=== PATIENT | female | born 1965 | race Native Hawaiian/Other Pacific Islander ===

== ENCOUNTER 2017-05-20 03:55 | Inpatient (IN) | payer MEDICAID ==
--- NOTE | 2017-05-20 04:31 | Emergency Department Report ---
HPI - General Time Seen by Provider: 05/20/17 04:14 - HPI HPI: Room 23 The patient is a 52-year-old female presenting with chief complaint of chest pain and shortness of breath. The patient speaks Amharic and is only able to provide a limited history. Patient acknowledges she developed shortness of breath and left-sided chest pain at 23:00 last night. Per EMS the patient complained of back pain prior to arrival. Patient is an occasional cough slightly productive of yellow sputum. Patient denies fever at home Location: Lungs, chest, see above Duration: [see above] Quality: Pain, shortness of breath Severity: Moderate Modifying factors: [see above] Context: [see above] Mode of transportation: EMS ED Past Medical Hx - Past Medical History Additional medical history: systemic scleroderma "my lungs are black and scarred ". very tiny and frail with bony deformities to both wrists and fingers - Surgical History Additional Surgical History: - Family History Family history: no significant - Social History Smoking Status: Never Smoker Substance Use Type: None - Medications Home Medications: Home Medications Medication Instructions Recorded Confirmed Last Taken Type Omeprazole [Prilosec] 40 mg PO QDAY 04/17/14 04/17/14 Unknown History ALBUTEROL Inhaler [Proair] 2 puff IH BID 05/20/17 05/20/17 Unknown History Budesoni/Formoterol 80-4.5(Nf) 2 puff IH BID 05/20/17 05/20/17 Unknown History [Symbicort 80-4.5 (Nf)] FLUoxetine [PROzac] 20 mg PO QDAY 05/20/17 05/20/17 Unknown History Sildenafil [Revatio] 20 mg PO TID 05/20/17 05/20/17 Unknown History Warfarin [Coumadin] 4 mg PO QDAY 05/20/17 05/20/17 Unknown History risperiDONE [RisperiDONE] 1 mg PO QDAY 05/20/17 05/20/17 Unknown History ED Review of Systems ROS: Stated complaint: ELIJAH Other details as noted in HPI Comment: Unobtainable due to pts medical conditions Respiratory: shortness of breath Cardiovascular: chest pain Physical Exam - Physical Exam Physical Exam: GENERAL: The patient is well-developed well-nourished []. [] HEENT: Normocephalic. Atraumatic. Extraocular motions are intact. Patient has moist mucous membranes. NECK: Supple. No meningitic signs are noted. There is no adenopathy noted. CHEST/LUNGS: Clear to auscultation. There is no respiratory distress noted. HEART/CARDIOVASCULAR: Regular. There is no tachycardia. There is no gallop rub or murmur. ABDOMEN: Abdomen is soft, nontender. Patient has normal bowel sounds. There is no abdominal distention. SKIN: There is no rash. There is no edema. There is no diaphoresis. NEURO: The patient is awake, alert, and oriented. The patient is cooperative. The patient has no focal neurologic deficits. The patient has normal speech and gait. MUSCULOSKELETAL: There is no tenderness or deformity. There is no limitation range of motion. There is no evidence of acute injury. ED Course - Reevaluation(s) Reevaluation #1: 05/20/17 04:39 Patient improved while on BiPAP. ED Medical Decision Making - Lab Data Result diagrams: 05/20/17 05:44 05/20/17 04:38 Laboratory Tests 05/20/17 05/20/17 05/20/17 04:38 04:38 04:53 PT 32.4 H INR 3.13 H APTT 32.6 D-Dimer 2081.20 H POC ABG pH 7.300 L POC ABG pCO2 68.0 H POC ABG pO2 285 H POC ABG HCO3 33.5 POC ABG Total CO2 36 POC ABG O2 Sat 100 POC ABG Base Excess 7 FiO2 100 Sodium 134 L Potassium 4.0 Chloride 93.5 L Carbon Dioxide 24 Anion Gap 21 BUN 14 Creatinine 0.4 L Estimated GFR > 60 BUN/Creatinine Ratio 35.00 Glucose 189 H Calcium 8.6 Total Bilirubin 0.20 AST 23 ALT 14 Alkaline Phosphatase 79 Total Creatine Kinase 35 CK-MB (CK-2) 1.5 CK-MB (CK-2) Rel Index 4.2 H Troponin T < 0.010 NT-Pro-B Natriuret Pep 209.8 Total Protein 7.1 Albumin 3.4 L Albumin/Globulin Ratio 0.9 Laboratory Tests 05/20/17 05/20/17 05/20/17 04:38 04:38 04:53 WBC RBC Hgb Hct MCV MCH MCHC RDW Plt Count Lymph % (Auto) [place] % (Auto) Eos % (Auto) Baso % (Auto) Lymph # [place] # Eos # Baso # Seg Neutrophils % Seg Neutrophils # PT 32.4 H INR 3.13 H APTT 32.6 D-Dimer 2081.20 H POC ABG pH 7.300 L POC ABG pCO2 68.0 H POC ABG pO2 285 H POC ABG HCO3 33.5 POC ABG Total CO2 36 POC ABG O2 Sat 100 POC ABG Base Excess 7 FiO2 100 Sodium 134 L Potassium 4.0 Chloride 93.5 L Carbon Dioxide 24 Anion Gap 21 BUN 14 Creatinine 0.4 L Estimated GFR > 60 BUN/Creatinine Ratio 35.00 Glucose 189 H Calcium 8.6 Total Bilirubin 0.20 AST 23 ALT 14 Alkaline Phosphatase 79 Total Creatine Kinase 35 CK-MB (CK-2) 1.5 CK-MB (CK-2) Rel Index 4.2 H Troponin T < 0.010 NT-Pro-B Natriuret Pep 209.8 Total Protein 7.1 Albumin 3.4 L Albumin/Globulin Ratio 0.9 05/20/17 05:44 WBC 12.2 H RBC 3.97 Hgb 10.5 Hct 33.3 MCV 84 MCH 26 L MCHC 31 RDW 17.7 H Plt Count 188 Lymph % (Auto) 4.9 L [place] % (Auto) 9.2 H Eos % (Auto) 0.2 Baso % (Auto) 0.3 Lymph # 0.6 L [place] # 1.1 H Eos # 0.0 Baso # 0.0 Seg Neutrophils % 85.4 H Seg Neutrophils # 10.4 H PT INR APTT D-Dimer POC ABG pH POC ABG pCO2 POC ABG pO2 POC ABG HCO3 POC ABG Total CO2 POC ABG O2 Sat POC ABG Base Excess FiO2 Sodium Potassium Chloride Carbon Dioxide Anion Gap BUN Creatinine Estimated GFR BUN/Creatinine Ratio Glucose Calcium Total Bilirubin AST ALT Alkaline Phosphatase Total Creatine Kinase CK-MB (CK-2) CK-MB (CK-2) Rel Index Troponin T NT-Pro-B Natriuret Pep Total Protein Albumin Albumin/Globulin Ratio - EKG Data -: EKG Interpreted by Me EKG shows normal: sinus rhythm Rate: tachycardia (138 bpm) - EKG Data When compared to previous EKG there are: previous EKG unavailable - Radiology Data Radiology results: pending (CT angio chest), image reviewed (chest x-ray) interpreted by me: Chest [id number] chronic appearing pulmonary scarring - Differential Diagnosis pneumonia, ACS, PE, pulmonary fibrosis Critical care attestation.: If time is entered above; I have spent that time in minutes in the direct care of this critically ill patient, excluding procedure time. ED Disposition Clinical Impression: Chest pain, Shortness of breath, Tachycardia Disposition: OP ADMIT IP TO THIS HOSP Is pt being admited?: Yes Does the pt Need Aspirin: No Condition: Serious Instructions: Chest Pain (ED) Referrals: PRIMARY CARE, [Primary Care Provider] - 3-5 Days Time of Disposition: 05:48 (hospitalist notified. CT chest pending)
[2017-05-20 05:06] LABS: INR 3.13 (0.87-1.13)
[2017-05-20 05:07] LABS: Partial Thromboplastin Time 32.6 Sec. (24.2-36.6)
[2017-05-20 05:13] LABS: Creatine Kinase MB 1.5 ng/mL (0.0-4.0)
[2017-05-20 05:15] LABS: Alanine Aminotransferase 14 units/L (7-56); Albumin 3.4 g/dL (3.9-5); Albumin/Globulin Ratio 0.9 %; Alkaline Phosphatase 79 units/L (35-129); Anion Gap 21 mmol/L; Blood Urea Nitrogen 14 mg/dL (7-17); Calcium 8.6 mg/dL (8.4-10.2); Carbon Dioxide 24 mmol/L (22-30); Chloride 93.5 mmol/L (98-107); Creatine Kinase 35 units/L (30-135); Glucose 189 mg/dL (65-100); Sodium 134 mmol/L (137-145); Total Protein 7.1 g/dL (6.3-8.2)
[2017-05-20 05:35] LABS: ISTAT Base Excess 7; ISTAT HCO3 33.5; ISTAT PO2 285 (80-105); ISTAT SO2 100; ISTAT TCO2 36
[2017-05-20] MEDS ORDERED: NACL 0.9% 1000 ML 1,000 ML IV ONE (05:57)
[2017-05-20 05:59] LABS: Basophils % (Auto) 0.3 % (0.0-1.8); Eosinophils % (Auto) 0.2 % (0.0-4.3); Hematocrit 33.3 % (30.3-42.9); Hemoglobin 10.5 gm/dl (10.1-14.3); Mean Corpuscular HGB Conc 31 % (30-34); Mean Corpuscular Hemoglobin 26 pg (28-32); Mean Corpuscular Volume 84 fl (79-97); Platelet Count 188 K/mm3 (140-440); Red Blood Count 3.97 M/mm3 (3.65-5.03); Red Cell Distribution Width 17.7 % (13.2-15.2); White Blood Count 12.2 K/mm3 (4.5-11.0)
[2017-05-20] MEDS ORDERED: NACL ONE (06:09)
--- NOTE | 2017-05-20 07:13 | Cat Scan Report ---
FINAL REPORT EXAM: CT ANGIO CHEST HISTORY: shortness of breath, chest pain TECHNIQUE: CT imaging obtained through the chest in pulmonary angiographic phase following intravenous administration of contrast. Transaxial, Coronal and sagittal reformats with maximal intensity projections are provided. PRIORS: None. FINDINGS: Normal caliber main pulmonary artery. Well opacified pulmonary arterial tree. No pulmonary embolism. No pericardial effusion. Thoracic aorta is normal in course and caliber. No periaortic fluid or stranding. Tracheal megaly with cystic bronchiectasis. Multiple lower lung predominant peribronchovascular ground-glass and solid attenuating nodules. Small bilateral pleural effusion. No pneumothorax. Imaged portion of the upper abdomen is unremarkable. The superficial soft tissues are unremarkable. No acute bony abnormality or worrisome osseous lesions identified. IMPRESSION: No pulmonary embolism. Chronic cystic bronchiectasis may be secondary to cystic fibrosis, connective tissue disease, Langerhans cell histiocytosis cystic lung disease, and multiple other relatively rare etiologies. Pulmonary consultation is recommended if not already obtained. Small bilateral pleural effusion. Numerous pulmonary nodules may reflect superimposed airspace disease or be due to underlying chronic process.
--- NOTE | 2017-05-20 07:16 | XRay Report ---
Single view chest: History: Shortness of breath. Findings: Cardiomegaly. Trachea is midline. Evidence of COPD with diffuse fibrosis and scarring. No definite consolidation with suspicion of infiltrates left lower lobe., no evidence of pleural effusion. Impression: Diffuse chronic fibrotic lung changes bilaterally with suspicion of infiltrates left lower lobe..
--- NOTE | 2017-05-20 09:50 | History and Physical Report ---
<ZAK MANCUSO - Last Filed: 05/20/17 14:03> History of Present Illness Date of examination: 05/20/17 Date of admission: 05/20/2017 Chief complaint: Shortness of breath History of present illness: Patient is a 52 years old female with past medical history rheumatoid arthritis, and pulmonary fibrosis presents with chief complaint of shortness of breath. Patient developed difficulty of breathing this morning around 5:00 AM she has had progressive worsening of shortness of breath and called 911 and the brought her to the Emergency department. The patient speaks [place] Citizen and I used ED language line. Patient denies chest pain, cough, fever, chills, or night sweats. No hx of recurrent pneumonia. She has no sick contact, TB exposure ( that she knows of ie incarcerated, homeless). She also has no pets, has not been around any farm animals, and has not traveled recently or been around those who have. Past History Past Medical History: COPD, other (depression and Scleroderma.) Past Surgical History: No surgical history Social history: denies: smoking, alcohol abuse Family history: CAD, hypertension Medications and Allergies Allergies Allergy/AdvReac Type Severity Reaction Status Date / Time No Known Allergies Allergy Verified 04/17/14 14:26 Home Medications Medication Instructions Recorded Confirmed Last Taken Type Omeprazole [Prilosec] 40 mg PO QDAY 04/17/14 05/20/17 Unknown History ALBUTEROL Inhaler [Proair] 2 puff IH BID 05/20/17 05/20/17 Unknown History Budesoni/Formoterol 80-4.5(Nf) 2 puff IH BID 05/20/17 05/20/17 Unknown History [Symbicort 80-4.5 (Nf)] FLUoxetine [PROzac] 20 mg PO QDAY 05/20/17 05/20/17 Unknown History Sildenafil [Revatio] 20 mg PO TID 05/20/17 05/20/17 Unknown History Warfarin [Coumadin] 4 mg PO QDAY 05/20/17 05/20/17 Unknown History risperiDONE [RisperiDONE] 1 mg PO QDAY 05/20/17 05/20/17 Unknown History Active Meds: Active Medications Acetaminophen (Tylenol) 650 mg PO Q4H PRN PRN Reason: Pain MILD(1-3)/Fever >100.5/RAMIREZ Albuterol (Proventil) 2.5 mg IH Q3HRT PRN PRN Reason: Shortness Of Breath Albuterol/Ipratropium (Duoneb *Not For Prn Use*) 1 ampul IH Q6HRT [facility] Bisacodyl (Dulcolax) 10 mg AR QDAY PRN PRN Reason: Constipation unrelieved by MOM Fluoxetine HCl (Prozac) 20 mg PO QDAY [facility] Sodium Chloride (Nacl 0.9% 1000 Ml) 1,000 mls @ 75 mls/hr IV DIRECT [facility] Magnesium Hydroxide (Milk Of Magnesia) 30 ml PO Q4H PRN PRN Reason: Constipation Miscellaneous Medication (Budesoni/Formoterol 80-4.5(Nf)) 2 puff IH BID [facility] Miscellaneous Medication (Omeprazole [Prilosec]) 40 mg PO QDAY [facility] Ondansetron HCl (Zofran) 4 mg IM Q4H PRN PRN Reason: Nausea And Vomiting Risperidone (Risperdal) 1 mg PO QDAY [facility] Sildenafil Citrate (Revatio) 20 mg PO TID [facility] Warfarin Sodium (Coumadin Pharmacy To Dose) 1 each PO PKCONSULT [facility] PRN Reason: Protocol Review of Systems Constitutional: no weight loss, no weight gain, no chills, no sweats Ears, nose, mouth and throat: no ear discharge, no tinnitis, no decreased hearing, no nose pain, no nasal congestion Breasts: no change in shape, no swelling Cardiovascular: shortness of breath, dyspnea on exertion, no chest pain, no orthopnea, no palpitations, no rapid/irregular heart beat, no syncope Respiratory: shortness of breath, dyspnea on exertion, congestion, wheezing, no cough, no cough with sputum Gastrointestinal: no vomiting, no diarrhea, no constipation, no change in bowel habits Genitourinary Female: no pelvic pain, no flank pain, no menorrhagia, no dysuria , no urinary frequency Rectal: no incontinence, no bleeding Musculoskeletal: no neck stiffness, no neck pain, no shooting arm pain, no arm numbness/tingling Integumentary: no pruritis, no redness, no sores Neurological: no head injury, no transient paralysis, no weakness, no parathesias Psychiatric: no memory loss, no change in sleep habits, no sleep disturbances, no insomnia, no hypersomnia Endocrine: no polyphagia, no excessive thirst, no polydipsia, no polyuria, no nocturia, no excessive sweating Hematologic/Lymphatic: no easy bruising, no easy bleeding Allergic/Immunologic: no urticaria, no allergic rhinitis Exam - Constitutional Vitals: Temp Pulse Resp BP Pulse Ox 98.2 F 113 H 31 H 99/59 69 L 05/20/17 07:30 05/20/17 08:30 05/20/17 08:30 05/20/17 08:30 05/20/17 08:30 General appearance: Present: no acute distress - EENT Eyes: Present: PERRL ENT: hearing intact - Neck Neck: Present: supple - Respiratory Respiratory effort: normal Respiratory: bilateral: CTA - Cardiovascular Rhythm: regular Heart Sounds: Present: S1 & S2 - Extremities Extremities: no ischemia Peripheral Pulses: within normal limits (is able) - Abdominal General gastrointestinal: Present: soft, non-tender Female genitourinary: Present: deferred - Rectal Rectal Exam: deferred - Integumentary Integumentary: Present: clear, warm, dry - Musculoskeletal Musculoskeletal: strength equal bilaterally - Psychiatric Psychiatric: appropriate mood/affect - Neurologic Neurologic: CNII-XII intact - Allied Health Allied health notes reviewed: nursing Results - Labs CBC & Chem 7: 05/20/17 05:44 05/20/17 04:38 Labs: Laboratory Last Values WBC 12.2 K/mm3 (4.5-11.0) H 05/20/17 05:44 RBC 3.97 M/mm3 (3.65-5.03) 05/20/17 05:44 Hgb 10.5 gm/dl (10.1-14.3) 05/20/17 05:44 Hct 33.3 % (30.3-42.9) 05/20/17 05:44 MCV 84 fl (79-97) 05/20/17 05:44 MCH 26 pg (28-32) L 05/20/17 05:44 MCHC 31 % (30-34) 05/20/17 05:44 RDW 17.7 % (13.2-15.2) H 05/20/17 05:44 Plt Count 188 K/mm3 (140-440) 05/20/17 05:44 Lymph % (Auto) 4.9 % (13.4-35.0) L 05/20/17 05:44 [place] % (Auto) 9.2 % (0.0-7.3) H 05/20/17 05:44 Eos % (Auto) 0.2 % (0.0-4.3) 05/20/17 05:44 Baso % (Auto) 0.3 % (0.0-1.8) 05/20/17 05:44 Lymph # 0.6 K/mm3 (1.2-5.4) L 05/20/17 05:44 [place] # 1.1 K/mm3 (0.0-0.8) H 05/20/17 05:44 Eos # 0.0 K/mm3 (0.0-0.4) 05/20/17 05:44 Baso # 0.0 K/mm3 (0.0-0.1) 05/20/17 05:44 Seg Neutrophils % 85.4 % (40.0-70.0) H 05/20/17 05:44 Seg Neutrophils # 10.4 K/mm3 (1.8-7.7) H 05/20/17 05:44 PT 32.4 Sec. (12.2-14.9) H 05/20/17 04:38 INR 3.13 (0.87-1.13) H 05/20/17 04:38 APTT 32.6 Sec. (24.2-36.6) 05/20/17 04:38 D-Dimer 2081.20 ng/mlDDU (0-234) H 05/20/17 04:38 POC ABG pH 7.300 (7.35-7.45) L 05/20/17 04:53 POC ABG pCO2 68.0 (35-45) H 05/20/17 04:53 POC ABG pO2 285 (80-105) H 05/20/17 04:53 POC ABG HCO3 33.5 05/20/17 04:53 POC ABG Total CO2 36 05/20/17 04:53 POC ABG O2 Sat 100 05/20/17 04:53 POC ABG Base Excess 7 05/20/17 04:53 FiO2 100 % 05/20/17 04:53 Sodium 134 mmol/L (137-145) L 05/20/17 04:38 Potassium 4.0 mmol/L (3.6-5.0) 05/20/17 04:38 Chloride 93.5 mmol/L (98-107) L 05/20/17 04:38 Carbon Dioxide 24 mmol/L (22-30) 05/20/17 04:38 Anion Gap 21 mmol/L 05/20/17 04:38 BUN 14 mg/dL (7-17) 05/20/17 04:38 Creatinine 0.4 mg/dL (0.7-1.2) L 05/20/17 04:38 Estimated GFR > 60 ml/min 05/20/17 04:38 BUN/Creatinine Ratio 35.00 % 05/20/17 04:38 Glucose 189 mg/dL (65-100) H 05/20/17 04:38 Calcium 8.6 mg/dL (8.4-10.2) 05/20/17 04:38 Total Bilirubin 0.20 mg/dL (0.1-1.2) 05/20/17 04:38 AST 23 units/L (5-40) 05/20/17 04:38 ALT 14 units/L (7-56) 05/20/17 04:38 Alkaline Phosphatase 79 units/L (35-129) 05/20/17 04:38 Total Creatine Kinase 35 units/L (30-135) 05/20/17 04:38 CK-MB (CK-2) 1.5 ng/mL (0.0-4.0) 05/20/17 04:38 CK-MB (CK-2) Rel Index 4.2 (0-4) H 05/20/17 04:38 Troponin T < 0.010 ng/mL (0.00-0.029) 05/20/17 04:38 NT-Pro-B Natriuret Pep 209.8 pg/mL (0-900) 05/20/17 04:38 Total Protein 7.1 g/dL (6.3-8.2) 05/20/17 04:38 Albumin 3.4 g/dL (3.9-5) L 05/20/17 04:38 Albumin/Globulin Ratio 0.9 % 05/20/17 04:38 - Imaging and Cardiology Chest x-ray: image reviewed (diffuse chronic fibrotic lung changes bilaterally with suspicion of infiltrates left lower lobe.) CT scan - abdomen: image reviewed (chronic cystic bronchiectasis secondary to cystic fibrosis, connective tissue diseases,Langerhans cells histiocytosis cystic lung disease.) US - abdomen: image reviewed Assessment and Plan Assessment and plan: Patient is a 52 years old female with past medical history rheumatoid arthritis, and pulmonary fibrosis presents with chief complaint of shortness of breath. Patient developed difficulty of breathing this morning around 5:00 AM she has had progressive worsening of shortness of breath and called 911 and the brought her to the Emergency department. PLAN Acute on chronic respiratory failure secondary to pulmonary fibrosis. Improved with BiPAP 60%; Patient currently on 15LNC on face mask, no acute respiratory distress is noted.. Aggressive Nebulizers/Inhalers ABG when necessary Oxygen supplement Supportive care Pulmonary consult Pulmonary Fibrosis Chest x-ray showed diffuse chronic fibrotic lung changes bilaterally with suspicion of infiltrates left lower lobe. CTA reviewed and demonstrated chronic cystic bronchiectasis secondary to cystic fibrosis, connective tissue diseases,Langerhans cells histiocytosis cystic lung disease. Elevated D-marlena CTA no evidence of PE Pulmonary consult Suspected Pneumonia Chest x-ray showed diffuse chronic fibrotic lung changes bilaterally with suspicion of infiltrates left lower lobe Blood and urine cultures were collected Follow blood cultures Initiated empiric treatment IV Levaquin Nebulizers/Inhalers Depression Stable at this time Resume home antidepressant medications DVT/Prophylaxis On Coumadin Advance Directives: Yes VTE prophylaxis?: Chemical Contraindication Mechanical VTE Prophylaxis: Treatment Not Indicated Plan of care discussed with patient/family: Yes <JUDD SANTO - Last Filed: 05/20/17 18:57> History of Present Illness Date of admission: 05/20/17 09:37 Medications and Allergies Active Meds: Active Medications Acetaminophen (Tylenol) 650 mg PO Q4H PRN PRN Reason: Pain MILD(1-3)/Fever >100.5/RAMIREZ Albuterol (Proventil) 2.5 mg IH Q3HRT PRN PRN Reason: Shortness Of Breath Albuterol/Ipratropium (Duoneb *Not For Prn Use*) 1 ampul IH Q6HRT [facility] Last Admin: 05/20/17 14:01 Dose: 1 ampul Arformoterol Tartrate (Brovana Nebu) 15 mcg IH Q12HRT [facility] Bisacodyl (Dulcolax) 10 mg AR QDAY PRN PRN Reason: Constipation unrelieved by MOM Budesonide (Pulmicort) 0.5 mg IH Q12HRT [facility] Fluoxetine HCl (Prozac) 20 mg PO QDAY [facility] Last Admin: 05/20/17 14:28 Dose: 20 mg Sodium Chloride (Nacl 0.9% 1000 Ml) 1,000 mls @ 75 mls/hr IV DIRECT [facility] Last Admin: 05/20/17 14:27 Dose: 75 mls/hr Levofloxacin/Dextrose (Levaquin 750mg/150ml) 750 mg in 150 mls @ 100 mls/hr IV Q24H [facility] PRN Reason: Protocol Last Admin: 05/20/17 14:27 Dose: 100 mls/hr Magnesium Hydroxide (Milk Of Magnesia) 30 ml PO Q4H PRN PRN Reason: Constipation Methylprednisolone Sodium Succinate (Solu-Medrol) 60 mg IV Q6H [facility] Last Admin: 05/20/17 14:28 Dose: 60 mg Ondansetron HCl (Zofran) 4 mg IM Q4H PRN PRN Reason: Nausea And Vomiting Pantoprazole Sodium (Protonix) 40 mg PO DAILY [facility] Last Admin: 05/20/17 14:27 Dose: 40 mg Risperidone (Risperdal) 1 mg PO QDAY [facility] Last Admin: 05/20/17 14:28 Dose: 1 mg Sildenafil Citrate (Revatio) 20 mg PO TID [facility] Last Admin: 05/20/17 17:49 Dose: 20 mg Warfarin Sodium (Coumadin Pharmacy To Dose) 1 each PO PKCONSULT [facility] PRN Reason: Protocol Warfarin Sodium (Coumadin) 4 mg PO DAILY@1700 [facility] Exam - Constitutional Vitals: Temp Pulse Resp BP Pulse Ox 98.2 F 114 H 25 H 103/66 96 05/20/17 07:30 05/20/17 14:08 05/20/17 15:41 05/20/17 11:00 05/20/17 14:03 Results - Labs CBC & Chem 7: 05/20/17 05:44 05/20/17 04:38 Labs: Laboratory Last Values WBC 12.2 K/mm3 (4.5-11.0) H 05/20/17 05:44 RBC 3.97 M/mm3 (3.65-5.03) 05/20/17 05:44 Hgb 10.5 gm/dl (10.1-14.3) 05/20/17 05:44 Hct 33.3 % (30.3-42.9) 05/20/17 05:44 MCV 84 fl (79-97) 05/20/17 05:44 MCH 26 pg (28-32) L 05/20/17 05:44 MCHC 31 % (30-34) 05/20/17 05:44 RDW 17.7 % (13.2-15.2) H 05/20/17 05:44 Plt Count 188 K/mm3 (140-440) 05/20/17 05:44 Lymph % (Auto) 4.9 % (13.4-35.0) L 05/20/17 05:44 [place] % (Auto) 9.2 % (0.0-7.3) H 05/20/17 05:44 Eos % (Auto) 0.2 % (0.0-4.3) 05/20/17 05:44 Baso % (Auto) 0.3 % (0.0-1.8) 05/20/17 05:44 Lymph # 0.6 K/mm3 (1.2-5.4) L 05/20/17 05:44 [place] # 1.1 K/mm3 (0.0-0.8) H 05/20/17 05:44 Eos # 0.0 K/mm3 (0.0-0.4) 05/20/17 05:44 Baso # 0.0 K/mm3 (0.0-0.1) 05/20/17 05:44 Seg Neutrophils % 85.4 % (40.0-70.0) H 05/20/17 05:44 Seg Neutrophils # 10.4 K/mm3 (1.8-7.7) H 05/20/17 05:44 ESR 72 mm/Hr (0-20) 05/20/17 13:58 PT 32.4 Sec. (12.2-14.9) H 05/20/17 04:38 INR 3.13 (0.87-1.13) H 05/20/17 04:38 APTT 32.6 Sec. (24.2-36.6) 05/20/17 04:38 D-Dimer 2081.20 ng/mlDDU (0-234) H 05/20/17 04:38 POC ABG pH 7.300 (7.35-7.45) L 05/20/17 04:53 POC ABG pCO2 68.0 (35-45) H 05/20/17 04:53 POC ABG pO2 285 (80-105) H 05/20/17 04:53 POC ABG HCO3 33.5 05/20/17 04:53 POC ABG Total CO2 36 05/20/17 04:53 POC ABG O2 Sat 100 05/20/17 04:53 POC ABG Base Excess 7 05/20/17 04:53 FiO2 100 % 05/20/17 04:53 Sodium 134 mmol/L (137-145) L 05/20/17 04:38 Potassium 4.0 mmol/L (3.6-5.0) 05/20/17 04:38 Chloride 93.5 mmol/L (98-107) L 05/20/17 04:38 Carbon Dioxide 24 mmol/L (22-30) 05/20/17 04:38 Anion Gap 21 mmol/L 05/20/17 04:38 BUN 14 mg/dL (7-17) 05/20/17 04:38 Creatinine 0.4 mg/dL (0.7-1.2) L 05/20/17 04:38 Estimated GFR > 60 ml/min 05/20/17 04:38 BUN/Creatinine Ratio 35.00 % 05/20/17 04:38 Glucose 189 mg/dL (65-100) H 05/20/17 04:38 Calcium 8.6 mg/dL (8.4-10.2) 05/20/17 04:38 Total Bilirubin 0.20 mg/dL (0.1-1.2) 05/20/17 04:38 AST 23 units/L (5-40) 05/20/17 04:38 ALT 14 units/L (7-56) 05/20/17 04:38 Alkaline Phosphatase 79 units/L (35-129) 05/20/17 04:38 Total Creatine Kinase 35 units/L (30-135) 05/20/17 04:38 CK-MB (CK-2) 1.5 ng/mL (0.0-4.0) 05/20/17 04:38 CK-MB (CK-2) Rel Index 4.2 (0-4) H 05/20/17 04:38 Troponin T < 0.010 ng/mL (0.00-0.029) 05/20/17 04:38 C-Reactive Protein 13.20 mg/dL (0.00-1.30) H 05/20/17 13:58 NT-Pro-B Natriuret Pep 209.8 pg/mL (0-900) 05/20/17 04:38 Total Protein 7.1 g/dL (6.3-8.2) 05/20/17 04:38 Albumin 3.4 g/dL (3.9-5) L 05/20/17 04:38 Albumin/Globulin Ratio 0.9 % 05/20/17 04:38
[2017-05-20] MEDS ORDERED: LOVENOX SUB-Q SCH (10:00)
[2017-05-20] MEDS ORDERED: NON-FORMULARY (Omeprazole [Prilosec] 40 MG) PO SCH (10:00)
[2017-05-20] MEDS ORDERED: MILK OF MAGNESIA PO PRN (10:00)
[2017-05-20] MEDS ORDERED: ZOFRAN IM PRN (10:00)
[2017-05-20] MEDS ORDERED: TYLENOL PO PRN (10:00)
[2017-05-20] MEDS ORDERED: DULCOLAX PR PRN (10:00)
[2017-05-20] MEDS ORDERED: PROVENTIL IH PRN (10:00)
[2017-05-20] MEDS ORDERED: NON-FORMULARY (Budesoni/Formoterol 80-4.5(Nf) 2 PUFF) IH SCH (10:00)
--- NOTE | 2017-05-20 13:57 | Consultation ---
History of Present Illness Consult date: 05/20/17 Requesting physician: JUDD SANTO Reason for consult: dyspnea, abnormal CXR/CT History of present illness: 52 y/o female with known systemic sclerosis, rheumatoid arthritis, and pulmonary fibrosis, admitted with acute respiratory failure. Patient speaks no Pakistani. Had to call several translators but ultimately received the number to the clinic she goes to at [place]. They are currently faxing all of her paperwork over including an updated list of medications. Currently patient on Venti-mask and stable. Did require bipap briefly while in ED. Past History Past Medical History: COPD, other (depression and Scleroderma. Pulm HTN, RA) Past Surgical History: No surgical history Social history: denies: smoking, alcohol abuse Family history: CAD, hypertension Medications and Allergies Allergies Allergy/AdvReac Type Severity Reaction Status Date / Time No Known Allergies Allergy Verified 04/17/14 14:26 Home Medications Medication Instructions Recorded Confirmed Last Taken Type Omeprazole [Prilosec] 40 mg PO QDAY 04/17/14 05/20/17 Unknown History ALBUTEROL Inhaler [Proair] 2 puff IH BID 05/20/17 05/20/17 Unknown History Budesoni/Formoterol 80-4.5(Nf) 2 puff IH BID 05/20/17 05/20/17 Unknown History [Symbicort 80-4.5 (Nf)] FLUoxetine [PROzac] 20 mg PO QDAY 05/20/17 05/20/17 Unknown History Sildenafil [Revatio] 20 mg PO TID 05/20/17 05/20/17 Unknown History Warfarin [Coumadin] 4 mg PO QDAY 05/20/17 05/20/17 Unknown History risperiDONE [RisperiDONE] 1 mg PO QDAY 05/20/17 05/20/17 Unknown History Active Meds: Active Medications Acetaminophen (Tylenol) 650 mg PO Q4H PRN PRN Reason: Pain MILD(1-3)/Fever >100.5/RAMIREZ Albuterol (Proventil) 2.5 mg IH Q3HRT PRN PRN Reason: Shortness Of Breath Albuterol/Ipratropium (Duoneb *Not For Prn Use*) 1 ampul IH Q6HRT [facility] Arformoterol Tartrate (Brovana Nebu) 15 mcg IH Q12HRT [facility] Bisacodyl (Dulcolax) 10 mg [place] QDAY PRN PRN Reason: Constipation unrelieved by MOM Budesonide (Pulmicort) 0.5 mg IH Q12HRT [facility] Fluoxetine HCl (Prozac) 20 mg PO QDAY [facility] Sodium Chloride (Nacl 0.9% 1000 Ml) 1,000 mls @ 75 mls/hr IV DIRECT [facility] Levofloxacin/Dextrose (Levaquin 750mg/150ml) 750 mg in 150 mls @ 100 mls/hr IV Q24H [facility] PRN Reason: Protocol Magnesium Hydroxide (Milk Of Magnesia) 30 ml PO Q4H PRN PRN Reason: Constipation Ondansetron HCl (Zofran) 4 mg IM Q4H PRN PRN Reason: Nausea And Vomiting Pantoprazole Sodium (Protonix) 40 mg PO DAILY [facility] Risperidone (Risperdal) 1 mg PO QDAY [facility] Sildenafil Citrate (Revatio) 20 mg PO TID [facility] Warfarin Sodium (Coumadin Pharmacy To Dose) 1 each PO PKCONSULT [facility] PRN Reason: Protocol Warfarin Sodium (Coumadin) 4 mg PO DAILY@1700 [facility] Review of Systems All systems: negative Physical Examination Vital signs: Vital Signs Pulse Resp BP 134 H 33 H 146/73 05/20/17 04:16 05/20/17 04:16 05/20/17 04:16 General appearance: no acute distress, alert Eyes: non-icteric Neck: supple Effort: mildly labored Ascultation: Bilateral: rales Percussion: Bilateral: not dull Cardiovascular: regular rate and rhythm Gastrointestinal: normoactive bowel sounds Extremities: other (changes on upper ext consistent with scleroderma) Results - Laboratory Findings CBC and BMP: 05/20/17 05:44 05/20/17 04:38 ABG POC ABG pH 7.300 (7.35-7.45) L 05/20/17 04:53 POC ABG pCO2 68.0 (35-45) H 05/20/17 04:53 POC ABG pO2 285 (80-105) H 05/20/17 04:53 POC ABG HCO3 33.5 05/20/17 04:53 POC ABG Total CO2 36 05/20/17 04:53 POC ABG O2 Sat 100 05/20/17 04:53 PT/INR, D-dimer PT 32.4 Sec. (12.2-14.9) H 05/20/17 04:38 INR 3.13 (0.87-1.13) H 05/20/17 04:38 D-Dimer 2081.20 ng/mlDDU (0-234) H 05/20/17 04:38 - Diagnostic Findings Chest x-ray: image reviewed CT scan - chest: image reviewed Assessment and Plan 62 y/o female with possible flare of connective tissue disease, resulting in acute respiratory failure from underlying lung disease related to CTD. Check stat Sed Rate Check stat CRP Solumedrol 60q6 review outside records If no improvement with steroids, may need transfer to [place] for IV immunomodulator therapy by team who has treated her in the past.
[2017-05-20] MEDS: DUONEB *Not for PRN Use IH SCH ×2 (14:01→20:08)
[2017-05-20] MEDS: PROTONIX PO SCH (14:27)
[2017-05-20] MEDS: NACL 0.9% 1000 ML 1,000 ML IV SCH (14:27)
[2017-05-20] MEDS: LEVAQUIN 750MG/150ML 750 MG/150 ML BAG IV SCH (14:27)
[2017-05-20] MEDS: RisperDAL PO SCH (14:28)
[2017-05-20] MEDS: PROzac PO SCH (14:28)
[2017-05-20] MEDS ORDERED: COUMADIN PO SCH (17:00)
[2017-05-20] MEDS: REVATIO PO SCH ×2 (17:49→22:46)
[2017-05-20] MEDS: PULMICORT IH SCH (20:08)
[2017-05-20] MEDS: BROVANA NEBU IH SCH (21:15)
[2017-05-21] MEDS: DUONEB *Not for PRN Use IH SCH ×4 (02:11→20:02)
[2017-05-21] MEDS: NACL 0.9% 1000 ML 1,000 ML IV SCH (04:12)
[2017-05-21 05:30] LABS: Hemoglobin 9.8 gm/dl (10.1-14.3); Mean Corpuscular HGB Conc 33 % (30-34); Mean Corpuscular Hemoglobin 27 pg (28-32); Mean Corpuscular Volume 82 fl (79-97); Platelet Count 174 K/mm3 (140-440); Red Blood Count 3.67 M/mm3 (3.65-5.03); Red Cell Distribution Width 17.5 % (13.2-15.2); White Blood Count 8.9 K/mm3 (4.5-11.0)
[2017-05-21 05:42] LABS: INR 2.46 (0.87-1.13)
[2017-05-21 05:49] LABS: Anion Gap 17 mmol/L; BUN/Creatinine Ratio 46.66; Blood Urea Nitrogen 14 mg/dL (7-17); Calcium 8.3 mg/dL (8.4-10.2); Carbon Dioxide 25 mmol/L (22-30); Chloride 96.9 mmol/L (98-107); Glucose 175 mg/dL (65-100); Potassium 3.1 mmol/L (3.6-5.0); Sodium 136 mmol/L (137-145)
[2017-05-21 06:33] LABS: Basophils % (Manual) 0 % (0.0-1.8); Blastocytes % (Manual) 0 %; Eosinophils % (Manual) 0 % (0.0-4.3); Giant Platelets Rare
[2017-05-21 06:34] LABS: Anisocytosis RARE; Hypochromasia Rare; Stomatocytes Few
[2017-05-21 06:35] LABS: Diff Status Complete; Ovalocytes Rare
[2017-05-21] MEDS: BROVANA NEBU IH SCH ×2 (07:20→20:02)
[2017-05-21] MEDS: PULMICORT IH SCH ×2 (07:20→20:02)
[2017-05-21] MEDS: K-DUR PO SCH ×2 (10:12→15:26)
[2017-05-21] MEDS: PROzac PO SCH (10:12)
[2017-05-21] MEDS: PROTONIX PO SCH (10:12)
[2017-05-21] MEDS: RisperDAL PO SCH (10:12)
[2017-05-21] MEDS: REVATIO PO SCH ×2 (10:15→15:30)
--- NOTE | 2017-05-21 12:08 | Progress Note ---
Assessment and Plan Assessment and plan: --Acute on chronic hypoxic respiratory failure Oxygen titrate to O2 sats more than 90%, currently on BiPAP Nebulizers and high dose IV steroids, IV antibiotics, pulmonary following Follow ABG, if no improvement transfer to ICU for close observation . intubate as needed --Interstitial lung disease/pulmonary fibrosis IV steroids, supportive care --Systemic sclerosis; For the last 10 years, received Cytoxan ,Rituxan in the past Follows with operations administrative assistant and instrumentation technician Continue steroids and supportive care --History of rheumatoid arthritis Continue current management, --Hypokalemia; replace per protocol and monitor levels --Chronic anticoagulation; patient had supratherapeutic INR on admission Today therapeutic levels, 2.4, resume Coumadin closely monitor --History of gastroesophageal reflux disease Continue Protonix --History of depression; resume home antidepression medications --DVT prophylaxis; patient is already on Coumadin Closely monitor the patient and adjust the management as needed If patient does not improve with the above treatment, may consider transfer to [facility] For further evaluation and management I discussed the case with instrumentation technician Dr. Perkins Transfer to ICU for close observation. Discussed the plan of care with the patient, her nurse as well as the ICU nurse critical care time 32 min History Interval history: Patient seen and examined in her room this morning medical records reviewed On BiPAP, mild tachypnea saturating well is at the bedside, complaints of shortness of breath denies chest pain Alert awake oriented 3 in mild distress Vital signs reviewed Hospitalist Physical - Constitutional Vitals: Temp Pulse Resp BP Pulse Ox 97.5 F L 107 H 28 H 135/74 94 05/21/17 05:19 05/21/17 07:30 05/21/17 07:30 05/21/17 05:19 05/21/17 07:20 General appearance: Present: mild distress, well-nourished, other (on BiPAP) - EENT Eyes: Present: PERRL, EOM intact - Neck Neck: Present: supple, normal ROM - Respiratory Respiratory effort: normal Respiratory: bilateral: diminished, rhonchi (occasional), negative: rales, wheezing - Cardiovascular Rhythm: regular Heart Sounds: Present: S1 & S2 - Extremities Extremities: no ischemia, No edema - Abdominal General gastrointestinal: soft, non-tender, non-distended, normal bowel sounds - Integumentary Integumentary: Present: clear, warm - Psychiatric Psychiatric: appropriate mood/affect, cooperative - Neurologic Neurologic: CNII-XII intact, moves all extremities Results - Labs CBC & Chem 7: 05/21/17 05:01 05/21/17 05:01 Labs: Laboratory Last Values WBC 8.9 K/mm3 (4.5-11.0) 05/21/17 05:01 RBC 3.67 M/mm3 (3.65-5.03) 05/21/17 05:01 Hgb 9.8 gm/dl (10.1-14.3) L 05/21/17 05:01 Hct 30.0 % (30.3-42.9) L 05/21/17 05:01 MCV 82 fl (79-97) 05/21/17 05:01 MCH 27 pg (28-32) L 05/21/17 05:01 MCHC 33 % (30-34) 05/21/17 05:01 RDW 17.5 % (13.2-15.2) H 05/21/17 05:01 Plt Count 174 K/mm3 (140-440) 05/21/17 05:01 Lymph % (Auto) 4.9 % (13.4-35.0) L 05/20/17 05:44 [place] % (Auto) 9.2 % (0.0-7.3) H 05/20/17 05:44 Eos % (Auto) 0.2 % (0.0-4.3) 05/20/17 05:44 Baso % (Auto) 0.3 % (0.0-1.8) 05/20/17 05:44 Lymph # 0.6 K/mm3 (1.2-5.4) L 05/20/17 05:44 [place] # 1.1 K/mm3 (0.0-0.8) H 05/20/17 05:44 Eos # 0.0 K/mm3 (0.0-0.4) 05/20/17 05:44 Baso # 0.0 K/mm3 (0.0-0.1) 05/20/17 05:44 Add Manual Diff Complete 05/21/17 05:01 Total Counted 100 05/21/17 05:01 Seg Neutrophils % Web Content Director 05/21/17 05:01 Seg Neuts % (Manual) 65.0 % (40.0-70.0) 05/21/17 05:01 Band Neutrophils % 22.0 % 05/21/17 05:01 Lymphocytes % (Manual) 8.0 % (13.4-35.0) L 05/21/17 05:01 Reactive Lymphs % (Man) 0 % 05/21/17 05:01 Monocytes % (Manual) 5.0 % (0.0-7.3) 05/21/17 05:01 Eosinophils % (Manual) 0 % (0.0-4.3) 05/21/17 05:01 Basophils % (Manual) 0 % (0.0-1.8) 05/21/17 05:01 Metamyelocytes % 0 % 05/21/17 05:01 Myelocytes % 0 % 05/21/17 05:01 Promyelocytes % 0 % 05/21/17 05:01 Blast Cells % 0 % 05/21/17 05:01 Nucleated RBC % Not Reportable 05/21/17 05:01 Seg Neutrophils # 10.4 K/mm3 (1.8-7.7) H 05/20/17 05:44 Seg Neutrophils # Man 5.8 K/mm3 (1.8-7.7) 05/21/17 05:01 Band Neutrophils # 2.0 K/mm3 05/21/17 05:01 Lymphocytes # (Manual) 0.7 K/mm3 (1.2-5.4) L 05/21/17 05:01 Abs React Lymphs (Man) 0.0 K/mm3 05/21/17 05:01 Monocytes # (Manual) 0.4 K/mm3 (0.0-0.8) 05/21/17 05:01 Eosinophils # (Manual) 0.0 K/mm3 (0.0-0.4) 05/21/17 05:01 Basophils # (Manual) 0.0 K/mm3 (0.0-0.1) 05/21/17 05:01 Metamyelocytes # 0.0 K/mm3 05/21/17 05:01 Myelocytes # 0.0 K/mm3 05/21/17 05:01 Promyelocytes # 0.0 K/mm3 05/21/17 05:01 Blast Cells # 0.0 K/mm3 05/21/17 05:01 WBC Morphology Not Reportable 05/21/17 05:01 Hypersegmented Neuts Not Reportable 05/21/17 05:01 Hyposegmented Neuts Not Reportable 05/21/17 05:01 Hypogranular Neuts Not Reportable 05/21/17 05:01 Smudge Cells Not Reportable 05/21/17 05:01 Toxic Granulation Not Reportable 05/21/17 05:01 Toxic Vacuolation Not Reportable 05/21/17 05:01 Dohle Bodies Not Reportable 05/21/17 05:01 Pelger-Huet Anomaly Not Reportable 05/21/17 05:01 Cornelius Rods Not Reportable 05/21/17 05:01 Platelet Estimate Appears normal 05/21/17 05:01 Clumped Platelets Not Reportable 05/21/17 05:01 Plt Clumps, EDTA Not Reportable 05/21/17 05:01 Large Platelets Not Reportable 05/21/17 05:01 Giant Platelets Rare 05/21/17 05:01 Platelet Satelliting Not Reportable 05/21/17 05:01 Plt Morphology Comment Not Reportable 05/21/17 05:01 RBC Morphology Not Reportable 05/21/17 05:01 Dimorphic RBCs Not Reportable 05/21/17 05:01 Polychromasia Not Reportable 05/21/17 05:01 Hypochromasia Rare 05/21/17 05:01 Poikilocytosis Not Reportable 05/21/17 05:01 Anisocytosis Rare 05/21/17 05:01 Microcytosis Not Reportable 05/21/17 05:01 Macrocytosis Not Reportable 05/21/17 05:01 Spherocytes Not Reportable 05/21/17 05:01 Pappenheimer Bodies Not Reportable 05/21/17 05:01 Sickle Cells Not Reportable 05/21/17 05:01 Target Cells Not Reportable 05/21/17 05:01 Tear Drop Cells Not Reportable 05/21/17 05:01 Ovalocytes Rare 05/21/17 05:01 Stomatocytes Few 05/21/17 05:01 Helmet Cells Not Reportable 05/21/17 05:01 [place] Bodies Not Reportable 05/21/17 05:01 [place] Rings Not Reportable 05/21/17 05:01 [place] Cells Not Reportable 05/21/17 05:01 Bite Cells Not Reportable 05/21/17 05:01 Crenated Cell Not Reportable 05/21/17 05:01 Elliptocytes Not Reportable 05/21/17 05:01 Acanthocytes (Spur) Not Reportable 05/21/17 05:01 Rouleaux Not Reportable 05/21/17 05:01 Hemoglobin C Crystals Not Reportable 05/21/17 05:01 Schistocytes Not Reportable 05/21/17 05:01 Malaria parasites Not Reportable 05/21/17 05:01 ESR 72 mm/Hr (0-20) 05/20/17 13:58 [place] Bodies Not Reportable 05/21/17 05:01 Hem Pathologist Commnt No 05/21/17 05:01 PT 26.8 Sec. (12.2-14.9) H 05/21/17 05:01 INR 2.46 (0.87-1.13) H 05/21/17 05:01 APTT 32.6 Sec. (24.2-36.6) 05/20/17 04:38 D-Dimer 2081.20 ng/mlDDU (0-234) H 05/20/17 04:38 POC ABG pH 7.300 (7.35-7.45) L 05/20/17 04:53 POC ABG pCO2 68.0 (35-45) H 05/20/17 04:53 POC ABG pO2 285 (80-105) H 05/20/17 04:53 POC ABG HCO3 33.5 05/20/17 04:53 POC ABG Total CO2 36 05/20/17 04:53 POC ABG O2 Sat 100 05/20/17 04:53 POC ABG Base Excess 7 05/20/17 04:53 FiO2 100 % 05/20/17 04:53 Sodium 136 mmol/L (137-145) L 05/21/17 05:01 Potassium 3.1 mmol/L (3.6-5.0) L D 05/21/17 05:01 Chloride 96.9 mmol/L (98-107) L 05/21/17 05:01 Carbon Dioxide 25 mmol/L (22-30) 05/21/17 05:01 Anion Gap 17 mmol/L 05/21/17 05:01 BUN 14 mg/dL (7-17) 05/21/17 05:01 Creatinine 0.3 mg/dL (0.7-1.2) L 05/21/17 05:01 Estimated GFR > 60 ml/min 05/21/17 05:01 BUN/Creatinine Ratio 46.66 % 05/21/17 05:01 Glucose 175 mg/dL (65-100) H 05/21/17 05:01 Calcium 8.3 mg/dL (8.4-10.2) L 05/21/17 05:01 Total Bilirubin 0.20 mg/dL (0.1-1.2) 05/20/17 04:38 AST 23 units/L (5-40) 05/20/17 04:38 ALT 14 units/L (7-56) 05/20/17 04:38 Alkaline Phosphatase 79 units/L (35-129) 05/20/17 04:38 Total Creatine Kinase 35 units/L (30-135) 05/20/17 04:38 CK-MB (CK-2) 1.5 ng/mL (0.0-4.0) 05/20/17 04:38 CK-MB (CK-2) Rel Index 4.2 (0-4) H 05/20/17 04:38 Troponin T < 0.010 ng/mL (0.00-0.029) 05/20/17 04:38 C-Reactive Protein 13.20 mg/dL (0.00-1.30) H 05/20/17 13:58 NT-Pro-B Natriuret Pep 209.8 pg/mL (0-900) 05/20/17 04:38 Total Protein 7.1 g/dL (6.3-8.2) 05/20/17 04:38 Albumin 3.4 g/dL (3.9-5) L 05/20/17 04:38 Albumin/Globulin Ratio 0.9 % 05/20/17 04:38
--- NOTE | 2017-05-21 14:13 | Progress Note ---
Assessment and Plan 62 y/o female with possible flare of connective tissue disease, resulting in acute respiratory failure from underlying lung disease related to CTD. Increase steroids to 1000 daily for the next 3 days Move to ICU for closer monitoring Continue current IV abx therapy, will not broaden at this time as this is likely progression of underlying lung disease May need to be transferred to [place] for IV immunotherapy. Reviewed the chart and from admission last month at [place], there were talks about IV rituxan but this was not started. Discussed with IMS who is in agreement. Spoke with Charge nurse who is working on obtaining bed in ICU CCT 31 minutes. Subjective Date of service: 05/21/17 Interval history: patient did not respond to 60q6 of solumedrol. Currently on bipap 14/6 and 70% . Stat ABG shows a PaO2 of 69. Patient awake and alert and can protect her airway. Objective Vital Signs - 12hr 05/21/17 05/21/17 05/21/17 02:14 02:25 02:46 Temperature Pulse Rate Pulse Rate [ Anterior Bilateral Throughout] Pulse Rate [ Radial] Pulse Rate [ 96 H 95 H Throughout] Respiratory 28 H Rate Respiratory Rate [Anterior Bilateral Throughout] Respiratory 28 H 26 H Rate [ Throughout] Respiratory Rate [chest] Blood Pressure O2 Sat by Pulse Oximetry 05/21/17 05/21/17 05/21/17 02:59 05:19 07:20 Temperature 97.5 F L Pulse Rate 107 H 108 H Pulse Rate [ 102 H Anterior Bilateral Throughout] Pulse Rate [ Radial] Pulse Rate [ Throughout] Respiratory 23 29 H Rate Respiratory 29 H Rate [Anterior Bilateral Throughout] Respiratory Rate [ Throughout] Respiratory 25 H Rate [chest] Blood Pressure 135/74 O2 Sat by Pulse 80 L 94 Oximetry 05/21/17 05/21/17 05/21/17 07:30 08:00 10:00 Temperature Pulse Rate 104 H Pulse Rate [ 107 H Anterior Bilateral Throughout] Pulse Rate [ 104 H Radial] Pulse Rate [ Throughout] Respiratory 24 Rate Respiratory 28 H Rate [Anterior Bilateral Throughout] Respiratory Rate [ Throughout] Respiratory Rate [chest] Blood Pressure O2 Sat by Pulse Oximetry 05/21/17 05/21/17 05/21/17 13:34 13:37 13:49 Temperature Pulse Rate 118 H Pulse Rate [ 117 H 120 H Anterior Bilateral Throughout] Pulse Rate [ Radial] Pulse Rate [ Throughout] Respiratory 37 H Rate Respiratory 33 H 37 H Rate [Anterior Bilateral Throughout] Respiratory Rate [ Throughout] Respiratory Rate [chest] Blood Pressure O2 Sat by Pulse 95 Oximetry Constitutional: no acute distress, alert Eyes: non-icteric Neck: supple Effort: mildly labored Ascultation: Bilateral: rales Percussion: Bilateral: not dull Cardiovascular: regular rate and rhythm Gastrointestinal: normoactive bowel sounds Extremities: other (changes on upper ext consistent with scleroderma) CBC and BMP: 05/21/17 05:01 05/21/17 05:01 ABG, PT/INR, D-dimer: ABG POC ABG pH 7.300 (7.35-7.45) L 05/20/17 04:53 POC ABG pCO2 68.0 (35-45) H 05/20/17 04:53 POC ABG pO2 285 (80-105) H 05/20/17 04:53 POC ABG HCO3 33.5 05/20/17 04:53 POC ABG Total CO2 36 05/20/17 04:53 POC ABG O2 Sat 100 05/20/17 04:53 PT/INR, D-dimer PT 26.8 Sec. (12.2-14.9) H 05/21/17 05:01 INR 2.46 (0.87-1.13) H 05/21/17 05:01 D-Dimer 2081.20 ng/mlDDU (0-234) H 05/20/17 04:38 Abnormal lab findings: Abnormal Labs 05/20/17 05/21/17 05/21/17 13:58 05:01 05:01 Hgb 9.8 L Hct 30.0 L MCH 27 L RDW 17.5 H Lymphocytes % (Manual) 8.0 L Lymphocytes # (Manual) 0.7 L PT INR Sodium 136 L Potassium 3.1 L D Chloride 96.9 L Creatinine 0.3 L Glucose 175 H Calcium 8.3 L C-Reactive Protein 13.20 H 05/21/17 05:01 Hgb Hct MCH RDW Lymphocytes % (Manual) Lymphocytes # (Manual) PT 26.8 H INR 2.46 H Sodium Potassium Chloride Creatinine Glucose Calcium C-Reactive Protein
[2017-05-21 14:30] LABS: ISTAT Base Excess 5; ISTAT HCO3 30.4; ISTAT PCO2 50.1 (35-45); ISTAT PO2 69 (80-105); ISTAT SO2 93; ISTAT TCO2 32
[2017-05-21] MEDS: LEVAQUIN 750MG/150ML 750 MG/150 ML BAG IV SCH (15:23)
[2017-05-21] MEDS ORDERED: K-DUR PO SCH (15:30)
[2017-05-21] MEDS ORDERED: COUMADIN PO SCH (17:00)
[2017-05-21 21:39] LABS: ISTAT Base Excess 3; ISTAT HCO3 27.6; ISTAT PCO2 45.9 (35-45); ISTAT PH 7.388 (7.35-7.45); ISTAT PO2 57 (80-105); ISTAT SO2 89; ISTAT TCO2 29
[2017-05-22] MEDS: NACL 0.9% 1000 ML 1,000 ML IV SCH ×2 (02:23→04:34)
[2017-05-22] MEDS: DUONEB *Not for PRN Use IH SCH ×2 (02:34→08:12)
[2017-05-22] MEDS: REVATIO PO SCH ×3 (04:35→15:10)
[2017-05-22 05:36] LABS: BUN/Creatinine Ratio 56.66; Blood Urea Nitrogen 17 mg/dL (7-17); Calcium 8.3 mg/dL (8.4-10.2); Carbon Dioxide 24 mmol/L (22-30); Chloride 104.3 mmol/L (98-107); Glucose 151 mg/dL (65-100); Potassium 4.6 mmol/L (3.6-5.0); Sodium 140 mmol/L (137-145)
[2017-05-22 05:37] LABS: Anion Gap 16 mmol/L
[2017-05-22 05:39] LABS: INR 2.9 (0.87-1.13)
[2017-05-22] MEDS: PULMICORT IH SCH (08:12)
[2017-05-22] MEDS: BROVANA NEBU IH SCH (08:12)
--- NOTE | 2017-05-22 08:13 | Progress Note ---
Assessment and Plan Assessment and plan: 52-year-old female patient with history of interstitial lung disease , scleroderma admitted with acute on chronic respiratory failure -- Acute on chronic respiratory failure secondary to interstitial lung disease/ scleroderma On BiPAP, saturating 95% on FiO2 of 55%,High-dose IV steroids, nebulizers, and antibiotics Patient may need IV immunotherapy , transfer to [facility] --History of rheumatoid arthritis --Elevated d-dimer ; negative PE --Hypophosphatemia; replace per protocol and monitor levels --Chronic anticoagulation; continue Coumadin, target INR 2-3 --History of gastroesophageal reflux disease Continue Protonix --History of depression;antidepression medications --DVT prophylaxis; patient is already on Coumadin 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 [facility] Patient may need IV immunotherapy Initiated the transfer, discussed the transfer center, awaiting response Plan of care discussed with the patient her nurse and the charge nurse critical care time 32 min History Interval history: Patient seen and examined in ICU this morning Medical records reviewed, patient is tachypneic and in respiratory distress requiring BiPAP Alert and awake responding appropriately, no new complaints Vital signs reviewed Hospitalist Physical - Constitutional Vitals: Temp Pulse Resp BP Pulse Ox 97.9 F 111 H 32 H 126/76 96 05/22/17 08:00 05/22/17 05:58 05/22/17 05:58 05/22/17 05:58 05/22/17 05:58 General appearance: Present: mild distress, well-nourished, other (on BiPAP) - EENT Eyes: Present: PERRL, EOM intact - Neck Neck: Present: supple, normal ROM - Respiratory Respiratory effort: labored Respiratory: bilateral: diminished, rhonchi, negative: rales, wheezing - Cardiovascular Rhythm: regular Heart Sounds: Present: S1 & S2 (tachycardia) - Extremities Extremities: no ischemia, No edema - Abdominal General gastrointestinal: soft, non-tender, non-distended, normal bowel sounds - Integumentary Integumentary: Present: clear, warm - Psychiatric Psychiatric: appropriate mood/affect, cooperative - Neurologic Neurologic: CNII-XII intact, moves all extremities Results - Labs CBC & Chem 7: 05/21/17 05:01 05/22/17 04:17 Labs: Laboratory Last Values WBC 8.9 K/mm3 (4.5-11.0) 05/21/17 05:01 RBC 3.67 M/mm3 (3.65-5.03) 05/21/17 05:01 Hgb 9.8 gm/dl (10.1-14.3) L 05/21/17 05:01 Hct 30.0 % (30.3-42.9) L 05/21/17 05:01 MCV 82 fl (79-97) 05/21/17 05:01 MCH 27 pg (28-32) L 05/21/17 05:01 MCHC 33 % (30-34) 05/21/17 05:01 RDW 17.5 % (13.2-15.2) H 05/21/17 05:01 Plt Count 174 K/mm3 (140-440) 05/21/17 05:01 Lymph % (Auto) 4.9 % (13.4-35.0) L 05/20/17 05:44 Gilchrist % (Auto) 9.2 % (0.0-7.3) H 05/20/17 05:44 Eos % (Auto) 0.2 % (0.0-4.3) 05/20/17 05:44 Baso % (Auto) 0.3 % (0.0-1.8) 05/20/17 05:44 Lymph # 0.6 K/mm3 (1.2-5.4) L 05/20/17 05:44 Gilchrist # 1.1 K/mm3 (0.0-0.8) H 05/20/17 05:44 Eos # 0.0 K/mm3 (0.0-0.4) 05/20/17 05:44 Baso # 0.0 K/mm3 (0.0-0.1) 05/20/17 05:44 Add Manual Diff Complete 05/21/17 05:01 Total Counted 100 05/21/17 05:01 Seg Neutrophils % Incinerator Attendant 05/21/17 05:01 Seg Neuts % (Manual) 65.0 % (40.0-70.0) 05/21/17 05:01 Band Neutrophils % 22.0 % 05/21/17 05:01 Lymphocytes % (Manual) 8.0 % (13.4-35.0) L 05/21/17 05:01 Reactive Lymphs % (Man) 0 % 05/21/17 05:01 Monocytes % (Manual) 5.0 % (0.0-7.3) 05/21/17 05:01 Eosinophils % (Manual) 0 % (0.0-4.3) 05/21/17 05:01 Basophils % (Manual) 0 % (0.0-1.8) 05/21/17 05:01 Metamyelocytes % 0 % 05/21/17 05:01 Myelocytes % 0 % 05/21/17 05:01 Promyelocytes % 0 % 05/21/17 05:01 Blast Cells % 0 % 05/21/17 05:01 Nucleated RBC % Not Reportable 05/21/17 05:01 Seg Neutrophils # 10.4 K/mm3 (1.8-7.7) H 05/20/17 05:44 Seg Neutrophils # Man 5.8 K/mm3 (1.8-7.7) 05/21/17 05:01 Band Neutrophils # 2.0 K/mm3 05/21/17 05:01 Lymphocytes # (Manual) 0.7 K/mm3 (1.2-5.4) L 05/21/17 05:01 Abs React Lymphs (Man) 0.0 K/mm3 05/21/17 05:01 Monocytes # (Manual) 0.4 K/mm3 (0.0-0.8) 05/21/17 05:01 Eosinophils # (Manual) 0.0 K/mm3 (0.0-0.4) 05/21/17 05:01 Basophils # (Manual) 0.0 K/mm3 (0.0-0.1) 05/21/17 05:01 Metamyelocytes # 0.0 K/mm3 05/21/17 05:01 Myelocytes # 0.0 K/mm3 05/21/17 05:01 Promyelocytes # 0.0 K/mm3 05/21/17 05:01 Blast Cells # 0.0 K/mm3 05/21/17 05:01 WBC Morphology Not Reportable 05/21/17 05:01 Hypersegmented Neuts Not Reportable 05/21/17 05:01 Hyposegmented Neuts Not Reportable 05/21/17 05:01 Hypogranular Neuts Not Reportable 05/21/17 05:01 Smudge Cells Not Reportable 05/21/17 05:01 Toxic Granulation Not Reportable 05/21/17 05:01 Toxic Vacuolation Not Reportable 05/21/17 05:01 Dohle Bodies Not Reportable 05/21/17 05:01 Pelger-Huet Anomaly Not Reportable 05/21/17 05:01 Cornelius Rods Not Reportable 05/21/17 05:01 Platelet Estimate Appears normal 05/21/17 05:01 Clumped Platelets Not Reportable 05/21/17 05:01 Plt Clumps, EDTA Not Reportable 05/21/17 05:01 Large Platelets Not Reportable 05/21/17 05:01 Giant Platelets Rare 05/21/17 05:01 Platelet Satelliting Not Reportable 05/21/17 05:01 Plt Morphology Comment Not Reportable 05/21/17 05:01 RBC Morphology Not Reportable 05/21/17 05:01 Dimorphic RBCs Not Reportable 05/21/17 05:01 Polychromasia Not Reportable 05/21/17 05:01 Hypochromasia Rare 05/21/17 05:01 Poikilocytosis Not Reportable 05/21/17 05:01 Anisocytosis Rare 05/21/17 05:01 Microcytosis Not Reportable 05/21/17 05:01 Macrocytosis Not Reportable 05/21/17 05:01 Spherocytes Not Reportable 05/21/17 05:01 Pappenheimer Bodies Not Reportable 05/21/17 05:01 Sickle Cells Not Reportable 05/21/17 05:01 Target Cells Not Reportable 05/21/17 05:01 Tear Drop Cells Not Reportable 05/21/17 05:01 Ovalocytes Rare 05/21/17 05:01 Stomatocytes Few 05/21/17 05:01 Helmet Cells Not Reportable 05/21/17 05:01 [place] Bodies Not Reportable 05/21/17 05:01 Rocheport Rings Not Reportable 05/21/17 05:01 Guadalupe Cells Not Reportable 05/21/17 05:01 Bite Cells Not Reportable 05/21/17 05:01 Crenated Cell Not Reportable 05/21/17 05:01 Elliptocytes Not Reportable 05/21/17 05:01 Acanthocytes (Spur) Not Reportable 05/21/17 05:01 Rouleaux Not Reportable 05/21/17 05:01 Hemoglobin C Crystals Not Reportable 05/21/17 05:01 Schistocytes Not Reportable 05/21/17 05:01 Malaria parasites Not Reportable 05/21/17 05:01 ESR 72 mm/Hr (0-20) 05/20/17 13:58 Yovanny Bodies Not Reportable 05/21/17 05:01 Hem Pathologist Commnt No 05/21/17 05:01 PT 31.9 Sec. (12.2-14.9) H 05/22/17 04:17 INR 2.90 (0.87-1.13) H 05/22/17 04:17 APTT 32.6 Sec. (24.2-36.6) 05/20/17 04:38 D-Dimer 2081.20 ng/mlDDU (0-234) H 05/20/17 04:38 POC ABG pH 7.388 (7.35-7.45) 05/21/17 20:19 POC ABG pCO2 45.9 (35-45) H 05/21/17 20:19 POC ABG pO2 57 (80-105) L 05/21/17 20:19 POC ABG HCO3 27.6 05/21/17 20:19 POC ABG Total CO2 29 05/21/17 20:19 POC ABG O2 Sat 89 05/21/17 20:19 POC ABG Base Excess 3 05/21/17 20:19 FiO2 80 % 05/21/17 20:19 Sodium 140 mmol/L (137-145) 05/22/17 04:17 Potassium 4.6 mmol/L (3.6-5.0) D 05/22/17 04:17 Chloride 104.3 mmol/L (98-107) 05/22/17 04:17 Carbon Dioxide 24 mmol/L (22-30) 05/22/17 04:17 Anion Gap 16 mmol/L 05/22/17 04:17 BUN 17 mg/dL (7-17) 05/22/17 04:17 Creatinine 0.3 mg/dL (0.7-1.2) L 05/22/17 04:17 Estimated GFR > 60 ml/min 05/22/17 04:17 BUN/Creatinine Ratio 56.66 % 05/22/17 04:17 Glucose 151 mg/dL (65-100) H 05/22/17 04:17 Calcium 8.3 mg/dL (8.4-10.2) L 05/22/17 04:17 Phosphorus 1.90 mg/dL (2.5-4.5) L 05/22/17 04:17 Magnesium 2.20 mg/dL (1.7-2.3) 05/22/17 04:17 Total Bilirubin 0.20 mg/dL (0.1-1.2) 05/20/17 04:38 AST 23 units/L (5-40) 05/20/17 04:38 ALT 14 units/L (7-56) 05/20/17 04:38 Alkaline Phosphatase 79 units/L (35-129) 05/20/17 04:38 Total Creatine Kinase 35 units/L (30-135) 05/20/17 04:38 CK-MB (CK-2) 1.5 ng/mL (0.0-4.0) 05/20/17 04:38 CK-MB (CK-2) Rel Index 4.2 (0-4) H 05/20/17 04:38 Troponin T < 0.010 ng/mL (0.00-0.029) 05/20/17 04:38 C-Reactive Protein 13.20 mg/dL (0.00-1.30) H 05/20/17 13:58 NT-Pro-B Natriuret Pep 209.8 pg/mL (0-900) 05/20/17 04:38 Total Protein 7.1 g/dL (6.3-8.2) 05/20/17 04:38 Albumin 3.4 g/dL (3.9-5) L 05/20/17 04:38 Albumin/Globulin Ratio 0.9 % 05/20/17 04:38
[2017-05-22] MEDS ORDERED: SODIUM PHOSPHATE 45 MMOL in NACL 0.9% 500 ML 500 ML IV ONE (08:30)
[2017-05-22] MEDS ORDERED: LASIX IV ONE (08:32)
[2017-05-22] MEDS ORDERED: LASIX IV NR ×2 (09:00→09:30)
--- NOTE | 2017-05-22 10:26 | Progress Note ---
Assessment and Plan 62 y/o female with possible flare of connective tissue disease, resulting in acute respiratory failure from underlying lung disease related to CTD. Continue pulse dose steroids, today is day 2 Spoke with [facility], they have called transfer line at [place] and awaiting reply Stopped IV fluids and given a one time dose of lasix 40 Also added some PRN anxiety meds given that patient has not been able to get her normal mood stablizing medications Hopeful patient can transfer but if not, will need to find out if this institution has Rituxan and what the proper dosing would be. IMS will call patient's Rheum doc fo get proper dosing if needed. CCT 31 minutes. Subjective Date of service: 05/22/17 Interval history: patient transferred to ICU given worsening respiratory status. Still remains on bipap but down to 55% this am. Did not repeat ABG as patient sats have improved. She is hypertensive this am, likely from steroids and has been given volume. Added lasix therapy one time dose, given that she has not had her revatio therapy. No family is at bedside. Objective Vital Signs - 12hr 05/21/17 05/22/17 05/22/17 23:14 00:00 00:09 Temperature 97.7 F Pulse Rate 106 H 99 H 110 H Pulse Rate [ Anterior Bilateral Throughout] Pulse Rate [ Radial] Respiratory 38 H 32 H 39 H Rate Respiratory Rate [Anterior Bilateral Throughout] Blood Pressure 133/81 O2 Sat by Pulse 97 97 95 Oximetry 05/22/17 05/22/17 05/22/17 02:35 02:46 03:32 Temperature Pulse Rate Pulse Rate [ 96 H 108 H Anterior Bilateral Throughout] Pulse Rate [ 102 H Radial] Respiratory 26 H Rate Respiratory 26 H 28 H Rate [Anterior Bilateral Throughout] Blood Pressure O2 Sat by Pulse 96 Oximetry 05/22/17 05/22/17 05/22/17 04:04 05:58 08:00 Temperature 97.1 F L 97.9 F Pulse Rate 111 H Pulse Rate [ Anterior Bilateral Throughout] Pulse Rate [ Radial] Respiratory 32 H Rate Respiratory Rate [Anterior Bilateral Throughout] Blood Pressure 126/76 O2 Sat by Pulse 96 92 Oximetry 05/22/17 05/22/17 08:08 08:24 Temperature Pulse Rate 116 H Pulse Rate [ 119 H 119 H Anterior Bilateral Throughout] Pulse Rate [ Radial] Respiratory 42 H Rate Respiratory 40 H 42 H Rate [Anterior Bilateral Throughout] Blood Pressure 161/64 O2 Sat by Pulse 98 Oximetry Constitutional: no acute distress, alert Eyes: non-icteric Neck: supple Effort: mildly labored Ascultation: Bilateral: rales Percussion: Bilateral: not dull Cardiovascular: regular rate and rhythm Gastrointestinal: normoactive bowel sounds Extremities: other (changes on upper ext consistent with scleroderma) CBC and BMP: 05/21/17 05:01 05/22/17 04:17 ABG, PT/INR, D-dimer: ABG POC ABG pH 7.388 (7.35-7.45) 05/21/17 20:19 POC ABG pCO2 45.9 (35-45) H 05/21/17 20:19 POC ABG pO2 57 (80-105) L 05/21/17 20:19 POC ABG HCO3 27.6 05/21/17 20:19 POC ABG Total CO2 29 05/21/17 20:19 POC ABG O2 Sat 89 05/21/17 20:19 PT/INR, D-dimer PT 31.9 Sec. (12.2-14.9) H 05/22/17 04:17 INR 2.90 (0.87-1.13) H 05/22/17 04:17 D-Dimer 2081.20 ng/mlDDU (0-234) H 05/20/17 04:38 Abnormal lab findings: Abnormal Labs 05/20/17 05/21/17 05/21/17 13:58 05:01 05:01 Hgb 9.8 L Hct 30.0 L MCH 27 L RDW 17.5 H Lymphocytes % (Manual) 8.0 L Lymphocytes # (Manual) 0.7 L PT INR POC ABG pCO2 POC ABG pO2 Sodium 136 L Potassium 3.1 L D Chloride 96.9 L Creatinine 0.3 L Glucose 175 H Calcium 8.3 L Phosphorus C-Reactive Protein 13.20 H 05/21/17 05/21/17 05/21/17 05:01 13:34 20:19 Hgb Hct MCH RDW Lymphocytes % (Manual) Lymphocytes # (Manual) PT 26.8 H INR 2.46 H POC ABG pCO2 50.1 H 45.9 H POC ABG pO2 69 L 57 L Sodium Potassium Chloride Creatinine Glucose Calcium Phosphorus C-Reactive Protein 05/22/17 05/22/17 04:17 04:17 Hgb Hct MCH RDW Lymphocytes % (Manual) Lymphocytes # (Manual) PT 31.9 H INR 2.90 H POC ABG pCO2 POC ABG pO2 Sodium Potassium Chloride Creatinine 0.3 L Glucose 151 H Calcium 8.3 L Phosphorus 1.90 L C-Reactive Protein
[2017-05-22] MEDS ORDERED: ATIVAN IV PRN (10:30)
--- NOTE | 2017-05-22 10:55 | Event Note ---
Date: 05/22/17 [facility] called back and informed me that there are no ICU beds available at this point The international travel consultant will call back in 1-2 hrs. Also tried to contact patient's primary ethanol operations manager Dr.Cozmuta Anderson [ [phone]] advised to call back
[2017-05-22] MEDS: PROTONIX PO SCH (11:25)
[2017-05-22] MEDS: RisperDAL PO SCH (11:25)
[2017-05-22] MEDS: PROzac PO SCH (11:25)
[2017-05-22 12:12] LABS: ISTAT Base Excess 9; ISTAT HCO3 33.1; ISTAT PCO2 48.9 (35-45); ISTAT PH 7.439 (7.35-7.45); ISTAT PO2 73 (80-105); ISTAT SO2 95; ISTAT TCO2 35
--- NOTE | 2017-05-22 12:32 | Discharge Summary ---
Providers - Providers Date of Admission: 05/20/17 09:37 Date of discharge: 05/22/17 Attending physician: JUDD SANTO 05/20/17 09:43 Consult to Physician [CONS] Routine Consulting Provider: JOSE ANGEL LOUIS Reason For Exam: interstitial lung disease Place consult to:: PULMONOLOGY Notified:: Y Phone number called:: yes Was contact made?: Yes If yes, spoke with:: DR RASHID Time called:: 10:05 Primary care physician: SOCIAL SECRETARY Hospitalization Reason for admission: worsening shortness of breath/respiratory distress Condition: Serious Pertinent studies: chest x-ray CTA chest Hospital course: 52-year-old female patient with history of scleroderma, interstitial lung disease and rheumatoid arthritis , 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 Sparks for further evaluation and management At the time of discharge patient is critically ill with guarded prognosis Assessment ; -- Acute on chronic respiratory failure secondary to interstitial lung disease --scleroderma --History of rheumatoid arthritis --Elevated d-dimer is negative PE --Hypophosphatemia --Chronic anticoagulation --Gastroesophageal reflux disease --History of depression Plan; -Continue BiPAP, titrate to O2 sats more than 90% -High-dose IV steroidsNebulizers, inhalation steroids -possible IV immunotherapy -Potassium phosphate -Continue Coumadin, target INR 2-3 -Protonix -Continue Prozac Pulmonary critical evaluation Rheumatology evaluation Disposition: [id number] ANOTHER TYPE HLTHCARE Time spent for discharge: 35 min Core Measure Documentation - Palliative Care Palliative Care/ Comfort Measures: Not Applicable - Core Measures Any of the following diagnoses?: none Exam - Constitutional Vitals: Temp Pulse Resp BP Pulse Ox 97.9 F 116 H 46 H 144/90 91 05/22/17 08:00 05/22/17 11:50 05/22/17 11:50 05/22/17 11:50 05/22/17 11:50 General appearance: Present: mild distress, well-nourished - EENT Eyes: Present: PERRL, EOM intact - Neck Neck: Present: supple, normal ROM - Respiratory Respiratory effort: labored Respiratory: bilateral: diminished, rhonchi, negative: rales, wheezing - Cardiovascular Rhythm: regular Heart Sounds: Present: S1 & S2 - Extremities Extremities: no ischemia Extremity abnormal: edema (trace edema) - Abdominal General gastrointestinal: Present: soft, non-tender, non-distended, normal bowel sounds - Integumentary Integumentary: Present: clear, warm - Musculoskeletal Musculoskeletal: strength equal bilaterally - Psychiatric Psychiatric: appropriate mood/affect, other ( anxious at times) - Neurologic Neurologic: CNII-XII intact, moves all extremities Plan Activity: advance as tolerated Diet: regular Additional Instructions: Transferred to [facility] ICU under the care of Dr. Sparks Follow up with: PRIMARY CARE, [Primary Care Provider] - 3-5 Days Forms: Warfarin Discharge Instruction
[2017-05-22] MEDS: LEVAQUIN 750MG/150ML 750 MG/150 ML BAG IV SCH (15:09)
[2017-05-22 15:47] VITALS: BP 140/92
== END 2017-05-22 16:32 | disposition short-term general hospital (02) | DRG 196 ==
LOC: ED 03:55 → 4A 09:37 → CC1 05-21 17:59
PROVIDERS: ADMIT Internal Medicine; ATTEND Internal Medicine
PROC: 4A033R1 Measurement of Arterial Saturation, Peripheral, Percutaneous Approach (ICD-10-PCS; principal; 2017-05-20)
PROC: 5A09457 Assistance with Respiratory Ventilation, 24-96 Consecutive Hours, Continuous Positive Airway Pressure (ICD-10-PCS; 2017-05-20)
DX: J84.10 Pulmonary fibrosis, unspecified (principal); J96.21 Acute and chronic respiratory failure with hypoxia; M34.9 Systemic sclerosis, unspecified; E87.6 Hypokalemia; M06.9 Rheumatoid arthritis, unspecified; J44.9 Chronic obstructive pulmonary disease, unspecified; F32.9 Major depressive disorder, single episode, unspecified; Z82.49 Family history of ischemic heart disease and other diseases of the circulatory system; I27.2 Other secondary pulmonary hypertension; E83.39 Other disorders of phosphorus metabolism; K21.9 Gastro-esophageal reflux disease without esophagitis; Z79.01 Long term (current) use of anticoagulants
CPT/HCPCS: 36415; 36600; 71010; 71275; 80048; 80053; 82550; 82553; 82803; 83735; 83880; 84100; 84484; 85007; 85025; 85379; 85610; 85652; 85730; 86140; 87040; 93005; 93010; 94640; 94660; 94760; 96360; J1940; J1956; J2060; J2930; J7030; J7040; J7050; Q9967

== ENCOUNTER 2017-06-18 15:10 | Emergency (ER) | payer MEDICAID ==
--- NOTE | 2017-06-18 16:05 | XRay Report ---
Single view chest: Compared to 05/20/17. History: Shortness of breath. Findings: Borderline cardiomegaly. Trachea appears midline without significant interval change. Chronic interstitial and fibrotic lung changes bilaterally without interval change. Impression: No significant interval change.
[2017-06-18] MEDS ORDERED: PROVENTIL IH ONE (16:31)
[2017-06-18] MEDS ORDERED: MAGNESIUM SULFATE 2GM/50ML 2 GM/50 ML BAG IV ONE (16:31)
[2017-06-18] MEDS ORDERED: ATROVENT IH ONE (16:31)
--- NOTE | 2017-06-18 17:23 | Emergency Department Report ---
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 History is obtained by patient' s relative as patient is Turkmen-speaking and history is limited due to patient' s language barrier. Patient had some shortness of breath that occurred gradually while she was just resting. She tried some breathing treatments but it didn't help. Patient has had multiple admissions to ERs and hospitals in the last 6 months for shortness of breath. Patient was initially satting 60% per EMS on nasal cannula but now she is satting 96% on BiPAP. She denies being in any pain at all she denies any hemoptysis. - Related Data Home Medications Medication Instructions Recorded Confirmed Last Taken Omeprazole [Prilosec] 40 mg PO BID 04/17/14 06/18/17 Unknown ALBUTEROL Inhaler [Proair] 2 puff IH BID 05/20/17 06/18/17 Unknown Budesoni/Formoterol 80-4.5(Nf) 2 puff IH BID 05/20/17 06/18/17 Unknown [Symbicort 80-4.5 (Nf)] FLUoxetine [PROzac] 20 mg PO QDAY 05/20/17 06/18/17 Unknown risperiDONE [RisperiDONE] 1 mg PO QHS 05/20/17 06/18/17 Unknown Allergies Allergy/AdvReac Type Severity Reaction Status Date / Time No Known Allergies Allergy Verified 04/17/14 14:26 ED Review of Systems ROS: Stated complaint: ELIJAH Other details as noted in HPI Constitutional: denies: chills, fever Eyes: denies: eye pain, eye discharge, vision change ENT: denies: ear pain, throat pain Respiratory: SOB at rest, wheezing. denies: cough, shortness of breath Cardiovascular: denies: chest pain, palpitations Endocrine: no symptoms reported Gastrointestinal: denies: abdominal pain, nausea, diarrhea Genitourinary: denies: urgency, dysuria, discharge Musculoskeletal: denies: back pain, joint swelling, arthralgia Skin: denies: rash, lesions Neurological: denies: headache, weakness, paresthesias Psychiatric: denies: anxiety, depression Hematological/Lymphatic: denies: easy bleeding, easy bruising ED Past Medical Hx - Past Medical History Hx Congestive Heart Failure: No Hx Diabetes: No Hx Pulmonary Embolism: No Hx Arthritis: Yes (RA) Hx Psychiatric Treatment: Yes (anxiety) Hx Asthma: No Hx COPD: Yes Hx Tuberculosis: No Additional medical history: systemic scleroderma "my lungs are black and scarred ". very tiny and frail with bony deformities to both wrists and fingers - Surgical History Additional Surgical History: - Social History Smoking Status: Never Smoker Substance Use Type: None - Medications Home Medications: Home Medications Medication Instructions Recorded Confirmed Last Taken Type Omeprazole [Prilosec] 40 mg PO BID 04/17/14 06/18/17 Unknown History ALBUTEROL Inhaler [Proair] 2 puff IH BID 05/20/17 06/18/17 Unknown History Budesoni/Formoterol 80-4.5(Nf) 2 puff IH BID 05/20/17 06/18/17 Unknown History [Symbicort 80-4.5 (Nf)] FLUoxetine [PROzac] 20 mg PO QDAY 05/20/17 06/18/17 Unknown History risperiDONE [RisperiDONE] 1 mg PO QHS 05/20/17 06/18/17 Unknown History ED Physical Exam - General Limitations: Language Barrier General appearance: alert, in no apparent distress - Head Head exam: Present: atraumatic, normocephalic - Eye Eye exam: Present: normal appearance - ENT ENT exam: Present: mucous membranes moist - Neck Neck exam: Present: normal inspection - Respiratory Respiratory exam: Present: wheezes. Absent: respiratory distress - Cardiovascular Cardiovascular Exam: Present: regular rate, normal rhythm. Absent: systolic murmur, diastolic murmur, rubs, gallop - GI/Abdominal GI/Abdominal exam: Present: soft, normal bowel sounds - Extremities Exam Extremities exam: Present: normal inspection - Back Exam Back exam: Present: normal inspection - Neurological Exam Neurological exam: Present: alert, oriented X3 - Psychiatric Psychiatric exam: Present: normal affect, normal mood - Skin Skin exam: Present: warm, dry, intact, normal color. Absent: rash ED Course Vital Signs 06/18/17 06/18/17 06/18/17 15:24 15:40 17:08 Temperature 97.8 F Pulse Rate 116 H 116 H Pulse Rate [ Anterior Bilateral Throughout] Respiratory 30 H 21 29 H Rate Respiratory Rate [Anterior Bilateral Throughout] Blood Pressure 118/67 118/67 O2 Sat by Pulse 100 100 Oximetry 06/18/17 06/18/17 06/18/17 17:29 17:50 18:00 Temperature Pulse Rate 108 H Pulse Rate [ 105 H Anterior Bilateral Throughout] Respiratory 16 36 H Rate Respiratory 26 H Rate [Anterior Bilateral Throughout] Blood Pressure 107/57 O2 Sat by Pulse 98 85 Oximetry 06/18/17 06/18/17 06/18/17 18:07 19:00 20:37 Temperature Pulse Rate 108 H 108 H Pulse Rate [ 118 H Anterior Bilateral Throughout] Respiratory 24 30 H Rate Respiratory 24 Rate [Anterior Bilateral Throughout] Blood Pressure 109/61 105/67 O2 Sat by Pulse 95 97 Oximetry - Consultations Consultation #1: 06/18/17 21:[address] Yang at [facility]. Due to patient's complex pulmonary disease she will need to be transferred over to [facility]. Discussed plan with the patient's family they agree with plan. Discussed out Dr. yang he agrees with plan. I will cover patient for empiric infection and I will get the patient Vancomycin and Zosyn. ED Medical Decision Making - Lab Data Result diagrams: 06/18/17 17:43 06/18/17 17:43 Lab Results 06/18/17 06/18/17 06/18/17 Range/Units 17:43 17:43 17:43 WBC 9.4 (4.5-11.0) K/mm3 RBC 3.99 (3.65-5.03) M/mm3 Hgb 10.6 (10.1-14.3) gm/dl Hct 33.3 (30.3-42.9) % MCV 83 (79-97) fl MCH 27 L (28-32) pg MCHC 32 (30-34) % RDW 20.8 H (13.2-15.2) % Plt Count 153 (140-440) K/mm3 Lymph % (Auto) 24.3 (13.4-35.0) % [place] % (Auto) 10.1 H (0.0-7.3) % Eos % (Auto) 3.4 (0.0-4.3) % Baso % (Auto) 0.9 (0.0-1.8) % Lymph # 2.3 (1.2-5.4) K/mm3 [place] # 1.0 H (0.0-0.8) K/mm3 Eos # 0.3 (0.0-0.4) K/mm3 Baso # 0.1 (0.0-0.1) K/mm3 Seg Neutrophils % 61.3 (40.0-70.0) % Seg Neutrophils # 5.8 (1.8-7.7) K/mm3 PT 13.1 (12.2-14.9) Sec. INR 0.94 (0.87-1.13) APTT 23.0 L (24.2-36.6) Sec. POC ABG pH (7.35-7.45) POC ABG pCO2 (35-45) POC ABG pO2 (80-105) POC ABG HCO3 POC ABG Total CO2 POC ABG O2 Sat POC ABG Base Excess FiO2 % Sodium 139 (137-145) mmol/L Potassium 4.3 (3.6-5.0) mmol/L Chloride 98.3 (98-107) mmol/L Carbon Dioxide 27 (22-30) mmol/L Anion Gap 18 mmol/L BUN 8 (7-17) mg/dL Creatinine 0.2 L (0.7-1.2) mg/dL Estimated GFR > 60 ml/min BUN/Creatinine Ratio 40 % Glucose 103 H (65-100) mg/dL Calcium 8.5 (8.4-10.2) mg/dL Troponin T < 0.010 (0.00-0.029) ng/mL 06/18/17 Range/Units 20:37 WBC (4.5-11.0) K/mm3 RBC (3.65-5.03) M/mm3 Hgb (10.1-14.3) gm/dl Hct (30.3-42.9) % MCV (79-97) fl MCH (28-32) pg MCHC (30-34) % RDW (13.2-15.2) % Plt Count (140-440) K/mm3 Lymph % (Auto) (13.4-35.0) % [place] % (Auto) (0.0-7.3) % Eos % (Auto) (0.0-4.3) % Baso % (Auto) (0.0-1.8) % Lymph # (1.2-5.4) K/mm3 [place] # (0.0-0.8) K/mm3 Eos # (0.0-0.4) K/mm3 Baso # (0.0-0.1) K/mm3 Seg Neutrophils % (40.0-70.0) % Seg Neutrophils # (1.8-7.7) K/mm3 PT (12.2-14.9) Sec. INR (0.87-1.13) APTT (24.2-36.6) Sec. POC ABG pH 7.390 (7.35-7.45) POC ABG pCO2 50.6 H (35-45) POC ABG pO2 92 (80-105) POC ABG HCO3 30.6 POC ABG Total CO2 32 POC ABG O2 Sat 97 POC ABG Base Excess 6 FiO2 45 % Sodium (137-145) mmol/L Potassium (3.6-5.0) mmol/L Chloride (98-107) mmol/L Carbon Dioxide (22-30) mmol/L Anion Gap mmol/L BUN (7-17) mg/dL Creatinine (0.7-1.2) mg/dL Estimated GFR ml/min BUN/Creatinine Ratio % Glucose (65-100) mg/dL Calcium (8.4-10.2) mg/dL Troponin T (0.00-0.029) ng/mL - EKG Data -: EKG Interpreted by In - EKG Data 06/18/17 21:19 EKG shows sinus tachycardia rate 108 right bundle and left bundle branch block artifact due to patient being on BiPAP no axis deviation no significant ST segment elevation. - Radiology Data Radiology results: image reviewed Chest x-ray: Shows mild cardiomegaly and findings of interstitial and chronic fibrotic lung disease - Medical Decision Making Chief medical diagnosis: Interstitial lung disease Differential diagnosis: COPD, pneumonia, pneumothorax, metabolic abnormality, non-STEMI I will get CBC, CMP, albuterol, ipratropium, Solu-Medrol, abg and BiPAP Patient will be admitted to the hospital given that she still on BiPAP and requires multiple doses of albuterol and ipratropium. She needs to be admitted due to a life-threatening condition. I will admit the patient to [facility] ICU. Due to her having prior interstitial lung disease. She required transfer to the ICU previously. Patient was accepted by Dr. Yang Critical Care Time: Yes (50) Critical care time in (mins) excluding proc time.: 50 Critical care attestation.: If time is entered above; I have spent that time in minutes in the direct care of this critically ill patient, excluding procedure time. Critical care time spent at patient's bedside 20 minutes Critical care time spent reviewing old records 10 minutes Critical care time spent with patient's family 5 minutes Critical care time spent reviewing patient's laboratory findings 5 minutes Critical care time spent with consultants 10 minutes ED Disposition Clinical Impression: SOB (shortness of breath), Interstitial lung disease, Acute respiratory distress, Tachypnea Disposition: DC/TX-70 ANOTHER TYPE HLTHCARE Is pt being admited?: No Does the pt Need Aspirin: No Condition: Stable Referrals: PRIMARY CARE, [Primary Care Provider] - 3-5 Days
[2017-06-18 18:06] LABS: Basophils % (Auto) 0.9 % (0.0-1.8); Eosinophils % (Auto) 3.4 % (0.0-4.3); Hematocrit 33.3 % (30.3-42.9); Hemoglobin 10.6 gm/dl (10.1-14.3); Mean Corpuscular HGB Conc 32 % (30-34); Mean Corpuscular Hemoglobin 27 pg (28-32); Mean Corpuscular Volume 83 fl (79-97); Red Blood Count 3.99 M/mm3 (3.65-5.03); White Blood Count 9.4 K/mm3 (4.5-11.0)
[2017-06-18 18:12] LABS: Platelet Count 153 K/mm3 (140-440); Red Cell Distribution Width 20.8 % (13.2-15.2)
[2017-06-18 18:16] LABS: INR 0.94 (0.87-1.13)
[2017-06-18 18:22] LABS: Anion Gap 18 mmol/L; BUN/Creatinine Ratio 40; Blood Urea Nitrogen 8 mg/dL (7-17); Calcium 8.5 mg/dL (8.4-10.2); Carbon Dioxide 27 mmol/L (22-30); Chloride 98.3 mmol/L (98-107); Glucose 103 mg/dL (65-100); Potassium 4.3 mmol/L (3.6-5.0); Sodium 139 mmol/L (137-145)
[2017-06-18] MEDS ORDERED: VANCOMYCIN VIAL IV ONE (20:10)
[2017-06-18] MEDS ORDERED: VANCOMYCIN 750 MG in NACL 0.9% 250ML 250 ML IV ONE (20:30)
[2017-06-18 20:43] LABS: ISTAT Base Excess 6; ISTAT HCO3 30.6; ISTAT PCO2 50.6 (35-45); ISTAT PO2 92 (80-105); ISTAT SO2 97; ISTAT TCO2 32
[2017-06-18] MEDS ORDERED: VANCOMYCIN PHARMACY TO DOSE IV SCH (21:00)
[2017-06-19] MEDS ORDERED: ZOSYN/NS 3.375GM/50ML 3.375 GM/50 ML BAG IV SCH
[2017-06-19 00:18] VITALS: BP 117/70
== END 2017-06-19 00:16 | disposition other institution (70) ==
LOC: ED 15:10
DX: J84.9 Interstitial pulmonary disease, unspecified (principal); R06.03 Acute respiratory distress; R06.82 Tachypnea, not elsewhere classified; J44.9 Chronic obstructive pulmonary disease, unspecified
CPT/HCPCS: 36415; 71010; 80048; 82803; 84484; 85025; 85610; 85730; 93005; 93010; 94640; 96365; 96366; 96367; 96375; 99291; J2930; J3370; J3475; J7050

== ENCOUNTER 2017-07-17 17:34 | Emergency (ER) | payer MEDICAID ==
[2017-07-17] MEDS ORDERED: ATROVENT IH ONE (18:07)
[2017-07-17] MEDS ORDERED: XOPENEX IH ONE (18:07)
--- NOTE | 2017-07-17 18:28 | Emergency Department Report ---
HPI - General Chief Complaint: Dyspnea/Respdistress Time Seen by Provider: 07/17/17 18:06 - HPI HPI: Room 18 The patient is a 52-year-old female presenting with a chief complaint shortness of breath. Patient has a history of primary fibrosis and scleroderma and states 3 hours ago she developed shortness of breath. The patient states she developed a cough that is nonproductive. Patient denies chest pain or any other type of pain/pressure. Location: Lungs Duration: 3 hours Quality: Shortness of breath Severity: Severe Modifying factors: [see above] Context: [see above] Mode of transportation: [not driving] ED Past Medical Hx - Past Medical History Previous Medical History?: Yes Hx Arthritis: Yes (RA) Hx Psychiatric Treatment: Yes (anxiety) Hx COPD: Yes Additional medical history: systemic scleroderma "my lungs are black and scarred ". very tiny and frail with bony deformities to both wrists and fingers. pulmonary fibrosis - Surgical History Past Surgical History?: Yes Additional Surgical History: - Family History Family history: no significant - Social History Smoking Status: Never Smoker Substance Use Type: None - Medications Home Medications: Home Medications Medication Instructions Recorded Confirmed Last Taken Type Omeprazole [Prilosec] 40 mg PO BID 04/17/14 07/17/17 Unknown History ALBUTEROL Inhaler [Proair] 2 puff IH BID 05/20/17 07/17/17 Unknown History Budesoni/Formoterol 80-4.5(Nf) 2 puff IH BID 05/20/17 07/17/17 Unknown History [Symbicort 80-4.5 (Nf)] FLUoxetine [PROzac] 20 mg PO QDAY 05/20/17 07/17/17 Unknown History risperiDONE [RisperiDONE] 4 tab PO QHS 05/20/17 07/17/17 Unknown History ED Review of Systems ROS: Stated complaint: ELIJAH Other details as noted in HPI Constitutional: denies: fever Respiratory: cough, shortness of breath Cardiovascular: denies: chest pain Physical Exam - Physical Exam Vital Signs: Vital Signs 07/17/17 18:17 Pulse Rate [ 125 H Bilateral Upper Lobe] Respiratory 26 H Rate [Bilateral Upper Lobe] Physical Exam: GENERAL: The patient is well-developed well-nourished female lying on stretcher with increased work of breathing HEENT: Normocephalic. Atraumatic. Extraocular motions are intact. Patient has moist mucous membranes. NECK: Supple. Trachea midline CHEST/LUNGS: Rhonchi versus scarring. There is tachypnea and increased work of breathing HEART/CARDIOVASCULAR: Regular. There is tachycardia. There is no gallop rub or murmur. ABDOMEN: Abdomen is soft, nontender. There is no abdominal distention. SKIN: There is no rash. There is no diaphoresis. NEURO: The patient is awake, alert, and oriented. The patient is cooperative. The patient has normal speech MUSCULOSKELETAL: There is no evidence of acute injury. ED Course Vital Signs 07/17/17 18:17 Pulse Rate [ 125 H Bilateral Upper Lobe] Respiratory 26 H Rate [Bilateral Upper Lobe] - Consultations Consultation #1: 07/17/17 23:06 [place] transfer line called 07/17/17 23:29 Case discussed with [place] ICU physician Dr. Duran. Will except patient in transfer - Central Line Placement Left Femoral Consent Obtained: verbal consent Time Out Performed: No Patient Placed on Monitor/Pulse Ox: Yes MD Prep: mask, gown, gloves Central Line Prep: Povidone-Iodine 1%, Chlorhexidine scrub, sterile drapes applied Local Anesthesia Used: Lidocaine 1% Amount of Anesthesia Used (mls): 6 Ultrasound Used for Placement: No Central Line Lumen Inserted: triple Bloods Obtained for Lab: No Central Line Position: good blood return, all ports aspirated, flus, other ( adhesive used to secure central line) Dressing Applied: Tegaderm Patient Tolerated Procedure: well Complications: other Additional Comments: Initial location chosen for central line was right femoral region. Multiple attempts were made with one arterial puncture. Pressure was held and the patient was hemostatic. The site was then abandoned and a left femoral central line was placed ED Medical Decision Making - Lab Data Result diagrams: 07/17/17 19:24 07/17/17 19:24 Laboratory Tests 07/17/17 07/17/17 07/17/17 19:24 19:24 19:24 WBC 14.5 H RBC 3.41 L Hgb 8.7 L Hct 28.7 L MCV 84 MCH 25 L MCHC 30 RDW 20.1 H Plt Count 279 Lymph % (Auto) 5.9 L [place] % (Auto) 6.3 Eos % (Auto) 0.1 Baso % (Auto) 0.2 Lymph # 0.9 L [place] # 0.9 H Eos # 0.0 Baso # 0.0 Seg Neutrophils % 87.5 H Seg Neutrophils # 12.6 H PT 13.9 INR 1.02 APTT 29.9 POC ABG pH POC ABG pCO2 POC ABG pO2 POC ABG HCO3 POC ABG Total CO2 POC ABG O2 Sat POC ABG Base Excess FiO2 Sodium 138 Potassium 4.4 Chloride 98.4 Carbon Dioxide 27 Anion Gap 17 BUN 11 Creatinine 0.3 L Estimated GFR > 60 BUN/Creatinine Ratio 37 Glucose 144 H Calcium 8.4 Total Creatine Kinase CK-MB (CK-2) CK-MB (CK-2) Rel Index Troponin T < 0.010 NT-Pro-B Natriuret Pep 07/17/17 07/17/17 07/17/17 19:24 20:06 20:17 WBC RBC Hgb Hct MCV MCH MCHC RDW Plt Count Lymph % (Auto) [place] % (Auto) Eos % (Auto) Baso % (Auto) Lymph # [place] # Eos # Baso # Seg Neutrophils % Seg Neutrophils # PT INR APTT POC ABG pH 7.381 7.383 POC ABG pCO2 43.3 42.3 POC ABG pO2 36 L 35 L POC ABG HCO3 25.6 25.2 POC ABG Total CO2 27 26 POC ABG O2 Sat 67 66 POC ABG Base Excess 1 0 FiO2 35 35 Sodium Potassium Chloride Carbon Dioxide Anion Gap BUN Creatinine Estimated GFR BUN/Creatinine Ratio Glucose Calcium Total Creatine Kinase 23 L CK-MB (CK-2) 1.6 CK-MB (CK-2) Rel Index 6.9 H Troponin T < 0.010 NT-Pro-B Natriuret Pep 996.8 H 07/17/17 21:25 WBC RBC Hgb Hct MCV MCH MCHC RDW Plt Count Lymph % (Auto) [place] % (Auto) Eos % (Auto) Baso % (Auto) Lymph # [place] # Eos # Baso # Seg Neutrophils % Seg Neutrophils # PT INR APTT POC ABG pH 7.336 L POC ABG pCO2 55.5 H POC ABG pO2 341 H POC ABG HCO3 29.6 POC ABG Total CO2 31 POC ABG O2 Sat 100 POC ABG Base Excess 4 FiO2 100 Sodium Potassium Chloride Carbon Dioxide Anion Gap BUN Creatinine Estimated GFR BUN/Creatinine Ratio Glucose Calcium Total Creatine Kinase CK-MB (CK-2) CK-MB (CK-2) Rel Index Troponin T NT-Pro-B Natriuret Pep - EKG Data -: EKG Interpreted by Me EKG shows normal: sinus rhythm Rate: tachycardia (128 bpm) - EKG Data When compared to previous EKG there are: previous EKG unavailable - Radiology Data Radiology results: report reviewed (CT chest), image reviewed (CT chest, chest x -ray) interpreted by me: Chest [id number] changes of pulmonary fibrosis seen FINAL REPORT PROCEDURE: CT ANGIO CHEST TECHNIQUE: Computerized tomographic angiography of the chest was performed after the IV injection of iodinated nonionic contrast including image processing. The image data was postprocessed using 2-dimensional multiplanar reformatted (MPR) and 3-dimensional (MIP and/or volume rendered) techniques. HISTORY: shortness of breath, hypoxia COMPARISON: No prior studies are available for comparison. FINDINGS: Bilateral pulmonary arteries and their branches demonstrate normal opacification without filling defects. Aorta is of normal caliber without evidence of dissection. Mild cardiomegaly is noted. Visualized upper abdominal structures are within normal limits. Mildly enlarged mediastinal lymphadenopathy is noted. Extensive cystic changes involving bilateral lungs is again noted. Lower lobe involvement is more than upper lobe involvement. Cystic bronchiectatic changes are noted. Superimposed infiltrates are noted in bilateral upper and lower lobes. There are trace bilateral pleural effusions. IMPRESSION: No evidence of pulmonary embolism. Extensive cystic changes of bilateral lungs are again noted without interval change. The differential diagnosis continues to include etiologies such as cystic fibrosis, connective tissue disease, cystic lung disease, Langerhans cell histiocytosis, lymphangiomyomatosis etc. Superimposed infiltrative changes are noted in bilateral upper and lower lobes. Trace bilateral pleural effusions. Mild degree mediastinal lymphadenopathy. Transcribed By: [facility] Dictated By: ANDRE LOVE Electronically Authenticated By: ANDRE LOVE Signed Date/Time: 07/17/171847 DD/ 47 TD/TT: 07/17/171847 - Differential Diagnosis primary fibrosis, pneumonia, Critical care attestation.: If time is entered above; I have spent that time in minutes in the direct care of this critically ill patient, excluding procedure time. ED Disposition Clinical Impression: Shortness of breath, Pneumonia, Hypoxia Disposition: DC/TX-70 ANOTHER TYPE HLTHCARE Is pt being admited?: No Does the pt Need Aspirin: No Condition: Serious Instructions: Bacterial Pneumonia (ED) Referrals: PRIMARY CARE, [Primary Care Provider] - 3-5 Days Time of Disposition: 23:30 (awaiting transport)
[2017-07-17] MEDS ORDERED: NACL 0.9% 1000 ML 1,000 ML ONE (19:20)
[2017-07-17] MEDS ORDERED: LEVOPHED DRIP 4 MG/NS 250 ML 4 MG/250 ML BAG IV ONE (19:31)
[2017-07-17] MEDS ORDERED: NACL 0.9% 1000 ML 1,000 ML IV ONE (19:35)
[2017-07-17 19:50] LABS: Basophils % (Auto) 0.2 % (0.0-1.8); Eosinophils % (Auto) 0.1 % (0.0-4.3); Hematocrit 28.7 % (30.3-42.9); Hemoglobin 8.7 gm/dl (10.1-14.3); Mean Corpuscular HGB Conc 30 % (30-34); Mean Corpuscular Volume 84 fl (79-97); Platelet Count 279 K/mm3 (140-440); Red Blood Count 3.41 M/mm3 (3.65-5.03); White Blood Count 14.5 K/mm3 (4.5-11.0)
[2017-07-17 19:52] LABS: Mean Corpuscular Hemoglobin 25 pg (28-32); Red Cell Distribution Width 20.1 % (13.2-15.2)
[2017-07-17] MEDS ORDERED: ZOSYN/NS 4.5GM/100ML 4.5 GM/100 ML VIAL IV ONE (20:00)
[2017-07-17 20:05] LABS: INR 1.02 (0.87-1.13); Partial Thromboplastin Time 29.9 Sec. (24.2-36.6)
[2017-07-17 20:14] LABS: Creatine Kinase MB 1.6 ng/mL (0.0-4.0)
[2017-07-17 20:15] LABS: Creatine Kinase 23 units/L (30-135)
[2017-07-17 20:39] LABS: Anion Gap 17 mmol/L; BUN/Creatinine Ratio 37; Blood Urea Nitrogen 11 mg/dL (7-17); Calcium 8.4 mg/dL (8.4-10.2); Carbon Dioxide 27 mmol/L (22-30); Chloride 98.4 mmol/L (98-107); Glucose 144 mg/dL (65-100); Potassium 4.4 mmol/L (3.6-5.0); Sodium 138 mmol/L (137-145)
--- NOTE | 2017-07-17 21:09 | XRay Report ---
FINAL REPORT PROCEDURE: XR CHEST 1V AP TECHNIQUE: Chest radiograph anteroposterior view. CPT 95922 HISTORY: Shortness of breath COMPARISON: CT chest 05/20/2017 FINDINGS: Heart: Normal. Mediastinum/Vessels: Normal. Lungs/Pleural space: Extensive cystic changes involving bilateral lungs are again identified. There are no pleural effusions. Mild degree superimposed alveolar infiltrative changes are noted in the right upper and midlung.. Bony thorax: No acute osseous abnormality. Life support devices: None. IMPRESSION: Extensive cystic changes of a bilateral lungs are again identified as seen on prior CT study. Superimposed infiltrates are suspected in the right upper and midlung..
[2017-07-17 22:06] LABS: ISTAT Base Excess 0; ISTAT HCO3 25.2; ISTAT PCO2 42.3 (35-45); ISTAT PH 7.383 (7.35-7.45); ISTAT PO2 35 (80-105); ISTAT SO2 66; ISTAT TCO2 26
[2017-07-17 22:06] LABS: ISTAT Base Excess 4; ISTAT HCO3 29.6; ISTAT PCO2 55.5 (35-45); ISTAT PH 7.336 (7.35-7.45); ISTAT PO2 341 (80-105); ISTAT SO2 100; ISTAT TCO2 31
[2017-07-17 22:06] LABS: ISTAT Base Excess 1; ISTAT HCO3 25.6; ISTAT PCO2 43.3 (35-45); ISTAT PH 7.381 (7.35-7.45); ISTAT PO2 36 (80-105); ISTAT SO2 67; ISTAT TCO2 27
--- NOTE | 2017-07-17 22:51 | Cat Scan Report ---
FINAL REPORT PROCEDURE: CT ANGIO CHEST TECHNIQUE: Computerized tomographic angiography of the chest was performed after the IV injection of iodinated nonionic contrast including image processing. The image data was postprocessed using 2-dimensional multiplanar reformatted (MPR) and 3-dimensional (MIP and/or volume rendered) techniques. HISTORY: shortness of breath, hypoxia COMPARISON: No prior studies are available for comparison. FINDINGS: Bilateral pulmonary arteries and their branches demonstrate normal opacification without filling defects. Aorta is of normal caliber without evidence of dissection. Mild cardiomegaly is noted. Visualized upper abdominal structures are within normal limits. Mildly enlarged mediastinal lymphadenopathy is noted. Extensive cystic changes involving bilateral lungs is again noted. Lower lobe involvement is more than upper lobe involvement. Cystic bronchiectatic changes are noted. Superimposed infiltrates are noted in bilateral upper and lower lobes. There are trace bilateral pleural effusions. IMPRESSION: No evidence of pulmonary embolism. Extensive cystic changes of bilateral lungs are again noted without interval change. The differential diagnosis continues to include etiologies such as cystic fibrosis, connective tissue disease, cystic lung disease, Langerhans cell histiocytosis, lymphangiomyomatosis etc. Superimposed infiltrative changes are noted in bilateral upper and lower lobes. Trace bilateral pleural effusions. Mild degree mediastinal lymphadenopathy.
[2017-07-18 01:12] VITALS: BP 113/71
== END 2017-07-18 01:40 | disposition other institution (70) ==
LOC: ED 17:34
DX: R06.02 Shortness of breath (principal); J18.9 Pneumonia, unspecified organism; R09.02 Hypoxemia; M19.90 Unspecified osteoarthritis, unspecified site; J44.9 Chronic obstructive pulmonary disease, unspecified
CPT/HCPCS: 36415; 36556; 71010; 71275; 80048; 82550; 82553; 82803; 83880; 84484; 85025; 85610; 85730; 87040; 93005; 93010; 94640; 96361; 96365; 99285; J2543; J7030; Q9967

== ENCOUNTER 2017-09-09 17:46 | Emergency (ER) | payer MEDICAID ==
[2017-09-09] MEDS ORDERED: ADRENALIN ONE (17:49)
--- NOTE | 2017-09-09 19:16 | Emergency Department Report ---
ED CPR HPI - General Chief Complaint: Cardiac Arrest/CPR Stated Complaint: CARDIAC ARREST Time Seen by Provider: 09/09/17 18:22 Source: EMS Mode of arrival: Stretcher Limitations: Language Barrier - History of Present Illness MD Complaint: found unresponsive (last known time of being conscious was 3 hours before being found. states that she was having shortness of breath this morning), stopped breathing Place: home Shock Advised: No Initial Findings in the Field: unresponsive, systole ROSC in the Field: No Associated Injuries: No Treatments Prior to Arrival: intubation (6.5 ET tube), chest compressions, epinephrine mgs # (2) - Related Data Home Medications Medication Instructions Recorded Confirmed Last Taken Omeprazole [Prilosec] 40 mg PO BID 04/17/14 07/17/17 Unknown ALBUTEROL Inhaler [Proair] 2 puff IH BID 05/20/17 07/17/17 Unknown Budesoni/Formoterol 80-4.5(Nf) 2 puff IH BID 05/20/17 07/17/17 Unknown [Symbicort 80-4.5 (Nf)] FLUoxetine [PROzac] 20 mg PO QDAY 05/20/17 07/17/17 Unknown risperiDONE [RisperiDONE] 4 tab PO QHS 05/20/17 07/17/17 Unknown Allergies Allergy/AdvReac Type Severity Reaction Status Date / Time No Known Allergies Allergy Verified 04/17/14 14:26 ED Review of Systems ROS: Stated complaint: CARDIAC ARREST Other details as noted in HPI Comment: Unobtainable due to pts medical conditions ED Past Medical Hx - Past Medical History Hx Congestive Heart Failure: No Hx Diabetes: No Hx Pulmonary Embolism: No Hx Arthritis: Yes (RA) Hx Psychiatric Treatment: Yes (anxiety) Hx Asthma: No Hx COPD: Yes Hx Tuberculosis: No Additional medical history: systemic scleroderma "my lungs are black and scarred ". very tiny and frail with bony deformities to both wrists and fingers. pulmonary fibrosis - Surgical History Additional Surgical History: - Social History Smoking Status: Never Smoker Substance Use Type: None - Medications Home Medications: Home Medications Medication Instructions Recorded Confirmed Last Taken Type Omeprazole [Prilosec] 40 mg PO BID 04/17/14 07/17/17 Unknown History ALBUTEROL Inhaler [Proair] 2 puff IH BID 05/20/17 07/17/17 Unknown History Budesoni/Formoterol 80-4.5(Nf) 2 puff IH BID 05/20/17 07/17/17 Unknown History [Symbicort 80-4.5 (Nf)] FLUoxetine [PROzac] 20 mg PO QDAY 05/20/17 07/17/17 Unknown History risperiDONE [RisperiDONE] 4 tab PO QHS 05/20/17 07/17/17 Unknown History ED Physical Exam - General Limitations: Language Barrier General appearance: obtunded - Head Head exam: Present: atraumatic - Eye Eye exam: Present: other - ENT ENT exam: Present: normal exam - Neck Neck exam: Present: normal inspection - Respiratory Respiratory exam: Present: other (no spontaneous breath sounds. With bagging there very loud coarse rails) - Cardiovascular Cardiovascular Exam: Present: other (no spontaneous heart tones) - GI/Abdominal GI/Abdominal exam: Present: soft - Extremities Exam Extremities exam: Present: normal inspection - Skin Skin exam: Present: warm, dry, intact - Intubation Sedative: none Laryngoscope: Jamil Size: 3 ET Tube Size: 7.5 Tube Placement Confirmation: visualized tube passing t, equal breath sounds bilat, no breath sounds over epi, confirmation by capnometr Additional Comments: Original ET tube was in the stomach Critical care attestation.: If time is entered above; I have spent that time in minutes in the direct care of this critically ill patient, excluding procedure time. ED Disposition Clinical Impression: Cardiopulmonary arrest Disposition: DC-20 Is pt being admited?: No Does the pt Need Aspirin: No Condition: Stable
== END 2017-09-09 18:55 ==
LOC: ED 17:46
DX: I46.9 Cardiac arrest, cause unspecified (principal); M06.9 Rheumatoid arthritis, unspecified; F41.9 Anxiety disorder, unspecified
CPT/HCPCS: 31500; 92950; 99285; J0171